=== PATIENT | male | born 1950 | race Caucasian/White ===

== ENCOUNTER 2017-06-01 21:11 | Inpatient (IN) | payer MEDICARE ==
--- NOTE | 2017-06-01 21:48 | RAD ---
CHEST ONE VIEW 06/01/17 HISTORY: Cough. COMPARISON: Chest one view 10/25/15 FINDINGS: Chronic changes of the left lung base are similar. Heart size is mildly prominent. No pneumothorax or large effusions. IMPRESSION: Similar appearance of the chronic changes left lung base. POS: [facility]
[2017-06-01 21:58] LABS: Hematocrit 33.9 % (42.0-52.0); Red Blood Cell (RBC) Count 3.67 mill/uL (4.70-6.10); White Blood Cell (WBC) Count 10.7 thou/uL (4.8-10.8)
[2017-06-01 22:03] LABS: Lactic Acid - Sepsis 1.6 mmol/L (0.5-2.2)
[2017-06-01] MEDS ORDERED: Ondansetron HCl/PF 4 MG/2 ML Vial ONE (22:08)
[2017-06-01 22:09] LABS: ALT (SGPT) 25 U/L (8-55); AST (SGOT) 33 U/L (5-34); Alkaline Phosphatase 146 U/L (40-150); Anion Gap 15 mmol/L (10-20); BUN (Urea Nitrogen) 34 mg/dL (8.4-25.7); Bilirubin, Total 1.8 mg/dL (0.2-1.2); Calc. Creatinine Clearance 0 mL/min (70-130); Calcium 8.4 mg/dL (7.8-10.44); Carbon Dioxide 18 mmol/L (23-31); Chloride 95 mmol/L (98-107); Estimated GFR-MDRD 29; Globulin 2.8 g/dL (2.4-3.5); Lipase 13 U/L (8-78); Magnesium 1.3 mg/dL (1.6-2.6); Protein, Total 5.8 g/dL (5.8-8.1)
[2017-06-01] MEDS ORDERED: Gentamicin Sulfate 80 MG in Premix Bag 1 BAG IVPB SCH (22:15)
--- NOTE | 2017-06-01 22:17 | CT ---
CT BRAIN WITHOUT CONTRAST 06/01/17 HISTORY: Altered mental status. COMPARISON: CT brain 10/25/15. FINDINGS: Left superior cerebellar encephalomalacia is similar as well as encephalomalacia in the left parietal and left frontal lobes. Extensive white matter disease is also present. All these findings are simil ar to the comparison examination. No hydrocephalus. No midline shift or mass effect. Moderate mucosal disease in the maxillary sinuses. IMPRESSION: 1. No significant change. Encephalomalacia of left frontal and parietal and left superior cerebe llum is similar. No acute hemorrhage. 2. Extensive microvascular ischemic changes. POS: [facility]
[2017-06-01 22:21] LABS: #Lymphocytes 0.6 thou/uL (1.20-3.40); #Neutrophils 9.2 thou/uL (1.40-6.50); %Basophils 0.1 % (0.0-1.0); %Eosinophils 0.1 % (0.0-10.0); %Lymphocytes 5.2 % (21.0-51.0); %Monocytes 9.4 % (0.0-10.0); Mean Platelet Volume 7.7 fL (7.4-10.4)
[2017-06-01] MEDS ORDERED: Magnesium Sulfate 2 GM/100 ML BAG ONE (22:56)
--- NOTE | 2017-06-01 22:56 | PDOC.EVN ---
Event Note - Event Note Event Note: [id number] 1. Group b strep bacteremia 2. Hyponatremia 3. NAUSEA AND VOMITING 4. Metabolic acidosis plan: See orders
[2017-06-01] MEDS ORDERED: Enoxaparin Sodium 40 MG/0.4 ML SYRINGE SC SCH (23:00)
[2017-06-01] MEDS ORDERED: Sodium Chloride 0.9% 1,000 ML IV SCH (23:00)
[2017-06-01] MEDS ORDERED: Fentanyl 100 MCG/2 ML VIAL ONE (23:11)
--- NOTE | 2017-06-01 23:30 | RAD ---
PELVIS ONE VIEW 06/01/17 HISTORY: Fall. Fall on right hip. COMPARISON: None. FINDINGS: The exam is limited due to leftward patient rotation. No displaced fracture is appreciated. IMPRESSION: No displaced fracture. If patient is acutely unable to bear weight, MRI recommended. POS: [facility]
[2017-06-01] MEDS ORDERED: Sodium Bicarbonate 75 MEQ in Sodium Chloride 0.45% 1,000 ML IV ONE (23:59)
[2017-06-01] MEDS ORDERED: Linezolid 600 MG in Premix Bag 1 BAG IVPB SCH (23:59)
[2017-06-02 01:41] VITALS: BMI 24.8
[2017-06-02] MEDS ORDERED: Linezolid 600 MG in Premix Bag 1 BAG IVPB SCH ×2 (03:00→15:00)
[2017-06-02] MEDS: Ondansetron HCl/PF 4 MG/2 ML Vial IVP PRN (04:05)
[2017-06-02] MEDS: HYDROcodone/Acetaminophen 5/325 mg Tablet PO PRN ×4 (04:06→19:43)
[2017-06-02 04:37] LABS: ALT (SGPT) 23 U/L (8-55); AST (SGOT) 26 U/L (5-34); Alkaline Phosphatase 113 U/L (40-150); Anion Gap 14 mmol/L (10-20); BUN (Urea Nitrogen) 37 mg/dL (8.4-25.7); Bilirubin, Total 1.4 mg/dL (0.2-1.2); Calc. Creatinine Clearance 39 mL/min (70-130); Calcium 7.9 mg/dL (7.8-10.44); Carbon Dioxide 16 mmol/L (23-31); Chloride 97 mmol/L (98-107); Estimated GFR-MDRD 31; Globulin 2.4 g/dL (2.4-3.5); Protein, Total 4.9 g/dL (5.8-8.1)
[2017-06-02 06:19] LABS: Band 13 % (5-11); Hematocrit 29.7 % (42.0-52.0); Neutrophil 76 % (42-75); Polychromasia SLIGHT = 2-3 cells (100X) (0-2/hpf); Red Blood Cell (RBC) Count 3.21 mill/uL (4.70-6.10); White Blood Cell (WBC) Count 10.3 thou/uL (4.8-10.8)
--- NOTE | 2017-06-02 07:34 | HP ---
DATE OF ADMISSION: 06/01/2017 CHIEF COMPLAINT: Abnormal labs, positive blood cultures. HISTORY OF PRESENT ILLNESS: The patient is 67 years old male with past medical history of hypertension, diabetes mellitus type 2, history of brain abscess and history of bacteremia, now came to the ER because of abnormal blood cultures and nausea and vomiting. The patient said he is having nausea and vomiting since Saturday. Symptoms improved on Saturday, but symptoms persisted again on Saturday, so he went to outside ER. In the outside ER, the patient had CT abdomen and pelvis done and patient was discharged to home. The patient's symptoms got worse today associated with vomiting, so patient came to the ER. Denies any fever, denies any chills. The patient did have blood cultures done in the outside ER yesterday, which showed group B strep bacteremia. The patient denies any cough, denies sputum production. Denies any chest pain, denies any palpitations at this time. PAST MEDICAL HISTORY: As per HPI. PAST SURGICAL HISTORY: Brain surgery, abscess drainage x2. SOCIAL HISTORY: Denies smoking, denies alcohol, denies any drugs. FAMILY HISTORY: Denies any heart problems. MEDICATIONS: Reviewed. ALLERGIES: PENICILLIN. REVIEW OF SYSTEMS: Constitutional: Denies any fever, denies any chills. Eyes : Denies any vision problems. Neck: Denies any neck pain. Cardiovascular system: Denies any chest pain, denies any palpitations. Respiratory system: Denies any cough, denies sputum production. Gastrointestinal: Positive for nausea, vomiting. Genitourinary: Denies dysuria. Integumentary: Denies any rash. All other systems are reviewed and are negative. PHYSICAL EXAMINATION: CONSTITUTIONAL/VITAL SIGNS: At the time of H&P performed, blood pressure 117/60 , pulse ox 93%, heart rate 83. GENERAL APPEARANCE: The patient appears comfortable. HEENT: Pupils equal, round, and reactive to light. Anterior nares patent. Nose normal. Ears normal. Teeth intact. Tongue is moist. NECK: Supple, no JVD. CARDIOVASCULAR: S1, S2 present. Regular rate and rhythm. No murmurs, no rubs , no gallops. RESPIRATORY SYSTEM: No wheezing, no rhonchi. Breath sounds bilaterally. GASTROINTESTINAL: Abdomen, mild tender to palpate. No guarding, no organomegaly, no masses felt. MUSCULOSKELETAL: No edema. INTEGUMENTARY: No obvious rashes seen. PSYCHIATRIC: Mood is appropriate at this time. LABORATORY DATA: At the time of H&P performed, sodium 124, potassium 4.1, chloride 95, CO2 is 18, BUN 34, creatinine 2.29. White count 10.7, hemoglobin 11.7, platelet count is 89. ASSESSMENT AND PLAN: The patient is 67 years old male. 1. Group B Streptococcus bacteremia. Plan to start the patient on IV antibiotics. Plan to consult ID to evaluate the patient. Plan to monitor the patient closely. 2. Nausea, vomiting. P.r.n. antiemetics. Monitor patient closely. CT abdomen was unremarkable. We will monitor the patient closely. 3. Hyponatremia probably due to hypovolemia. Plan to start the patient on IV fluids, obtain BMP in a.m. and BMP q.6h. We will monitor sodium level closely. We will consult Nephrology to evaluate the patient. 4. Metabolic acidosis, mild. Monitor bicarb level. Plan to start the patient on half NS with 75 mEq bicarbonate. 5. History of diabetes mellitus, type 2. Monitor blood sugars. We will continue insulin sliding scale. 6. History of hypertension. Continue home blood pressure meds. The case was discussed in detail with the patient. GIOVANNA
[2017-06-02] MEDS ORDERED: Promethazine HCl 25 MG/ML VIAL IM/IV PRN (07:44)
[2017-06-02] MEDS ORDERED: Dextrose 50% Abboject 50 ML SYRINGE SLOW IVP PRN (08:11)
[2017-06-02] MEDS ORDERED: Dextrose 5% in Water 1,000 ML IV PRN (08:11)
[2017-06-02] MEDS ORDERED: Hyoscyamine Sulfate SL 0.125 mg Tablet SL PRN (08:11)
[2017-06-02] MEDS ORDERED: HumaLOG 300 UNITS/3 ML VIAL SC PRN (08:11)
[2017-06-02] MEDS ORDERED: Mag-Al 1200 mg/1200 mg/30 ML UDCUP PO PRN (08:14)
[2017-06-02] MEDS ORDERED: Diabetic Tussin 200 MG/10 ML UDCUP PO PRN (08:14)
[2017-06-02] MEDS ORDERED: Sodium Chloride 0.65% Nasal 44 ML BOT EA NARE PRN (08:14)
[2017-06-02] MEDS ORDERED: Temazepam 15 MG CAP PO PRN (08:14)
[2017-06-02] MEDS ORDERED: Loratadine 10 MG TAB PO PRN (08:14)
[2017-06-02] MEDS ORDERED: Artificial Tears 18 DROP/0.9 ML EA EYE PRN (08:14)
[2017-06-02] MEDS ORDERED: Loperamide HCl 2 MG CAP PO PRN (08:14)
[2017-06-02] MEDS ORDERED: Milk Of Magnesia 30 ML UDCUP PO PRN (08:14)
[2017-06-02] MEDS ORDERED: Chloraseptic Spray 180 ml Bottle PO PRN (08:14)
[2017-06-02] MEDS ORDERED: hydrALAZINE 20 MG/ML VIAL SLOW IVP PRN (08:14)
[2017-06-02] MEDS ORDERED: Senokot 8.6 MG TAB PO PRN (08:14)
[2017-06-02] MEDS ORDERED: Eucerin (Mineral Oil/Petrolatum,White) 30 gm Jar TOP PRN (08:14)
[2017-06-02] MEDS: Promethazine HCl 25 MG/ML VIAL IM/IV PRN (08:26)
--- NOTE | 2017-06-02 10:04 | PDOC.PN ---
- Subjective Encounter Start Date: 06/02/17 Encounter Start Time: 07:00 -: old records requested/rev Patient seen and examined. No overnight events, pt has nausea and vomiting, weak , has right leg pain - Objective Resuscitation Status: Resuscitation Status FULL:Full Resuscitation MAR Reviewed: Yes Vital Signs & Weight: Vital Signs (12 hours) Temp Pulse Resp BP Pulse Ox 06/02/17 07:12 99.1 F 78 16 149/68 H 90 L 06/02/17 00:50 98.3 F 72 18 135/61 92 L 06/02/17 00:42 98.3 F 72 18 92 L Weight Weight 178 lb Result Diagrams: 06/02/17 03:58 06/02/17 03:58 EKG Reviewed by me: Yes Phys Exam - Physical Examination Constitutional: NAD HEENT: PERRLA, moist MMs, sclera anicteric Neck: no JVD, supple Respiratory: no wheezing, no rales, no rhonchi Cardiovascular: RRR, no significant murmur, no rub Gastrointestinal: soft, non-tender, no distention, positive bowel sounds Musculoskeletal: no edema, pulses present Neurological: non-focal, normal sensation, moves all 4 limbs Psychiatric: normal affect, A&O x 3 Skin: no rash, normal turgor Dx/Plan (1) Fall Code(s): W19.XXXA - UNSPECIFIED FALL, INITIAL ENCOUNTER Status: Acute (2) Acute kidney failure Status: Acute (3) Bacteremia due to Streptococcus Code(s): R78.81 - BACTEREMIA; B95.5 - UNSP STREPTOCOCCUS THE CAUSE OF DISEASES CLASSD ELSWHR Status: Acute (4) Hyponatremia Code(s): E87.1 - HYPO-OSMOLALITY AND HYPONATREMIA Status: Acute (5) Metabolic acidosis Code(s): E87.2 - ACIDOSIS Status: Acute (6) Nausea & vomiting Code(s): R11.2 - NAUSEA WITH VOMITING, UNSPECIFIED Status: Acute (7) Sepsis with acute organ dysfunction Code(s): A41.9 - SEPSIS, UNSPECIFIED ORGANISM; R65.20 - SEVERE SEPSIS WITHOUT SEPTIC SHOCK Status: Acute (8) Thrombocytopenia Code(s): D69.6 - THROMBOCYTOPENIA, UNSPECIFIED Status: Acute (9) DM type 2 (diabetes mellitus, type 2) Status: Chronic (10) Dyslipidemia Code(s): E78.5 - HYPERLIPIDEMIA, UNSPECIFIED Status: Chronic (11) HTN (hypertension) Code(s): I10 - ESSENTIAL (PRIMARY) HYPERTENSION Status: Chronic (12) Hemiparesis due to old cerebrovascular accident Code(s): I69.359 - HEMIPLGA FOLLOWING CEREBRAL INFARCTION AFFECTING UNSP SIDE Status: Chronic - Plan cont current plan of care, continue antibiotics, PT/OT * continue ivf with bicarbonate and once finish start NS * DC zyvox * change levaquin based on renal dose * ID consulted * echo pending * will get strep screen * repeat labs and culture tomorrow * start PT * pain control * medication reviewed as below * symptomatic treatment. * add phenergan Review of Systems - Review of Systems Constitutional: Weakness. negative: Fever, Chills, Sweats, Malaise, Other Eyes: negative: Pain, Vision Change, Conjunctivae Inflammation, Eyelid Inflammation, Redness, Other ENT: negative: Ear Pain, Ear Discharge, Nose Pain, Nose Discharge, Nose Congestion, Mouth Pain, Mouth Swelling, Throat Pain, Throat Swelling, Other Respiratory: negative: Cough, Dry, Shortness of Breath, Hemoptysis, SOB with Excertion, Pleuritic Pain, Sputum, Wheezing Cardiovascular: negative: Chest Pain, Palpitations, Orthopnea, Paroxysmal Noc. Dyspnea, Edema, Light Headedness, Other Gastrointestinal: Nausea, Vomiting Genitourinary: negative: Dysuria, Frequency, Incontinence, Hematuria, Retention , Other Musculoskeletal: Leg Pain. negative: Neck Pain, Shoulder Pain, Arm Pain, Back Pain, Hand Pain, Foot Pain, Other Skin: negative: Rash, Lesions, Jean Paul, Bruising, Other - Medications/Allergies Allergies/Adverse Reactions: Allergies Allergy/AdvReac Type Severity Reaction Status Date / Time Penicillins Allergy Hives Verified 06/23/14 11:19 Medications: Current Medications Acetaminophen (Tylenol) 650 mg PO Q4H PRN PRN Reason: Headache/Fever or Pain Hydrocodone Bitart/Acetaminophen ([place] 5/325) 1 tab PO Q4H PRN PRN Reason: Moderate Pain (4-6) Last Admin: 06/02/17 04:06 Dose: 1 tab Al Hydroxide/Mg Hydroxide (Maalox) 15 ml PO Q4H PRN PRN Reason: Heartburn or Indigestion Artificial Tears (Tears Naturale) 0 drop EA EYE PRN PRN PRN Reason: Dry Eyes Atorvastatin Calcium (Lipitor) 10 mg PO HS [facility]EL Dextrose/Water (Dextrose 50%) 25 gm SLOW IVP PRN PRN PRN Reason: Hypoglycemia Famotidine (Pepcid) 20 mg SLOW IVP Q24HR MICHAEL Glucagon (Glucagon) 1 mg IM PRN PRN PRN Reason: Hypoglycemia Guaifenesin (Robitussin Sf) 200 mg PO Q4H PRN PRN Reason: Cough Hydralazine HCl (Apresoline) 10 mg SLOW IVP Q4H PRN PRN Reason: Systolic BP > 180 Hyoscyamine Sulfate (Levsin Sl) 0.125 mg SL Q4H PRN PRN Reason: GI Cramping Sodium Bicarbonate 75 meq/ (Sodium Chloride) 1,075 mls @ 75 mls/hr IV NOW ONE Stop: 06/02/17 14:18 Last Admin: 06/02/17 02:11 Dose: 1,075 mls Levofloxacin 750 mg/ Device 150 mls @ 100 mls/hr IVPB Q2DAYS MICHAEL Dextrose/Water (D5w) 1,000 mls @ 0 mls/hr IV .Q0M PRN; As Directed PRN Reason: Hypoglycemia Sodium Chloride (Normal Saline 0.9%) 1,000 mls @ 125 mls/hr IV .Q8H MICHAEL Insulin Human Lispro (Humalog) 0 units SC .MODERATE SLIDING SC PRN PRN Reason: Moderate Correctional Scale Insulin Human Lispro (Humalog) 0 units SC .BEDTIME SLIDING SC PRN PRN Reason: Bedtime Correctional Scale Loperamide HCl (Imodium) 2 mg PO PRN PRN PRN Reason: Diarrhea/Loose Stools Loratadine (Claritin) 10 mg PO DAILYPRN PRN PRN Reason: Sinus Symptoms Magnesium Hydroxide (Milk Of Magnesium) 30 ml PO DAILYPRN PRN PRN Reason: Constipation Mineral Oil/White Petrolatum (Eucerin Cream) 0 gm TOP BIDPRN PRN PRN Reason: Dry Skin Ondansetron HCl (Zofran) 4 mg IVP Q6H PRN PRN Reason: Nausea/Vomiting Last Admin: 06/02/17 04:05 Dose: 4 mg Ondansetron HCl (Zofran Odt) 4 mg PO Q6H PRN PRN Reason: Nausea/Vomiting Phenol (Chloraseptic [place] 180 Ml Bot) 0 ml PO PRN PRN PRN Reason: Sore Throat Promethazine HCl (Phenergan) 12.5 mg IM/IV Q6H PRN PRN Reason: Nausea/Vomiting Last Admin: 06/02/17 08:26 Dose: 12.5 mg Senna (Senokot) 2 tab PO HSPRN PRN PRN Reason: Constipation Sodium Chloride (Flush - Normal Saline) 10 ml IVF Q12HR MICHAEL Sodium Chloride (Flush - Normal Saline) 10 ml IVF PRN PRN PRN Reason: Saline Flush Sodium Chloride ([place] Nasal [place] 0.65%) 0 ml EA NARE QIDPRN PRN PRN Reason: Nasal Congestion Temazepam (Restoril) 15 mg PO HSPRN PRN PRN Reason: Insomnia
[2017-06-02 11:41] LABS: Bilirubin Small (Negative); Blood, Urine Trace (Negative); Glucose, Urine (Dipstick) Negative (Negative); Ketone, Urine Trace mg/dL (Negative); Nitrite Negative (Negative); Protein, Urine (Dipstick) 100 mg/dL (Neg-Trace)
[2017-06-02 11:43] LABS: Bacteria/HPF None Seen HPF (None Seen); Hyaline Casts/LPF 0-3 HYALINE CAST LPF (0-3 Hyaline); Squamous Epithelial 0-3 HPF (0-3); WBC/HPF 0-3 HPF (0-3)
--- NOTE | 2017-06-02 12:43 | ULT ---
BILATERAL RENAL ULTRASOUND: Date: 06/02/17 HISTORY: Acute renal insufficiency. FINDINGS: Real-time imaging of the right and left kidneys were performed. This shows normal sized kidneys. Righ t kidney measures 12.0 cm and left kidney measures 11.1 cm in size. There are bilateral renal cysts p resent. The largest on the right is 2.5 cm in the upper pole region and on the left is 4.3 cm in the lower pole region. The bladder has a Reid catheter in place. No signs of obstruction of either kidne y. IMPRESSION: Bilateral renal cysts. No evidence of obstruction. POS: [facility]
[2017-06-02] MEDS: Famotidine/PF 20 mg/2ml Vial SLOW IVP SCH (14:58)
[2017-06-02] MEDS ORDERED: cefTRIAXone\\ROCEPHIN 1 GM in Sodium Chloride 0.9% 100 ML IVPB SCH (15:45)
--- NOTE | 2017-06-02 16:34 | CON ---
DATE OF CONSULTATION: 06/02/2017 REASON FOR CONSULTATION: Bacteremia. 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 He went to the emergency room and a CT abdomen and pelvis was done . The CT findings indicated no bowel obstruction, some perinephric stranding which was bilateral and worse than previously and a nonobstructing left renal calculus noted. Because of persistence of vom iting, he was admitted. The initial findings included BP 117/60 and temperature 98.3. Overall, exam showed mild tenderness in the abdominal area. Patient was given IV antimicrobial therapy with levof loxacin after one dose of ceftriaxone. Currently, he is feeling much better. He denies headaches, v isual symptoms, sore throat, odynophagia, dysphagia. Nausea and vomiting has resolved. No abdominal pain. Voiding without difficulty. He had a little bit of back pain earlier, but that has resolved. Apparently, he fell down and hit his right hip area associated with this acute illness. No appendi cular structure symptoms. No neurological symptoms. 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 SOCIAL HISTORY: Never a smoker. ALLERGIES: History of allergy to PENICILLIN when he was 11 years old and he does not remember exactly what it was, but some form of skin rash. MEDICATIONS: Currently include Tylenol, [place], Maalox, Lipitor, glucagon, Levsin, insulin, and antim icrobials as mentioned above. PHYSICAL EXAMINATION: VITAL SIGNS: T-max 99.1, blood pressure 150/71, pulse 77, respirations 16, O2 sat 92%. GENERAL: Skin exam was normal. Peripheral IV access. He is voiding spontaneously. No lymphadenopa thy. HEENT: Ocular movements are conjugate. Sclerae are white. Pupils are equal. Oral cavity with few numerous missing teeth with a few remaining ones with severe decay and gum disease and gum resorption . NECK: Supple, no jugular venous distention. LUNGS: With symmetric clear breath sounds. HEART: S1 and S2, regular rate. No S3, S4. ABDOMEN: Soft, no tenderness. : No genital abnormalities. MUSCULOSKELETAL: Moves all extremities equally. Mild tenderness in the right hip region. Plantar r esponses are flexure. Cognitive function appears to be intact. LABORATORY DATA: He had white cell count 10.7 and 10.3, hemoglobin 10.6, MCV 92, platelets 86,000 wi th 76% neutrophils. Chemistry with creatinine 2.29 and 2.14. Sodium 123, carbon dioxide 16, bilirub in 1.8 and 1.4. Liver profile normal. Albumin 2.5. Lipase 30. Urinalysis with 0-3 wbc's. Microbi ology with 2 sets of blood cultures with group B Streptococcus from 05/31/2017. Urine culture, no gr owth from 05/31/2017. ASSESSMENT: 1. Diabetes type 2. 2. Prior brain abscesses many years ago. 3. Poor dentition. 4. Diabetes type 2. 5. Skin changes in the feet with onychomycosis. Some areas of periungual inflammatory change and ar eas of skin breakdown in the distal feet. 6. Abnormalities on CT scan with perinephric stranding. 7. Group B strep bacteremia. DISCUSSION: Differential diagnoses includes pyelonephritis with group B strep associated with bacter emia versus bacteremia secondary to penetration of skin organisms through the breeches in the skin no colton in the feet area. No other abnormalities noted in the clinical evaluation that might indicate an alternate source. Transition to Rocephin since the allergy history is not significant for beta lact am cross reactivity. Eventually transition to oral Keflex for a total of 2 weeks. Follow up resolut ion of the kidney stranding changes. Patient will need a Podiatry care and proper foot care as well.
[2017-06-02] MEDS: Sodium Chloride 0.9% 1,000 ML IV SCH ×3 (17:13→22:41)
[2017-06-02] MEDS: HumaLOG 300 UNITS/3 ML VIAL SC PRN (17:51)
[2017-06-02] MEDS: Atorvastatin Calcium 10 MG TAB PO SCH (19:43)
[2017-06-02] MEDS: cefTRIAXone\\ROCEPHIN 1 GM, Syringe 0.4 ML in Sterile Water 9.6 ML SLOW IVP SCH (21:53)
[2017-06-03] MEDS: HYDROcodone/Acetaminophen 5/325 mg Tablet PO PRN (03:55)
[2017-06-03] MEDS: Ondansetron HCl/PF 4 MG/2 ML Vial IVP PRN (04:46)
[2017-06-03 05:12] LABS: ALT (SGPT) 20 U/L (8-55); AST (SGOT) 22 U/L (5-34); Alkaline Phosphatase 126 U/L (40-150); Anion Gap 13 mmol/L (10-20); BUN (Urea Nitrogen) 33 mg/dL (8.4-25.7); Bilirubin, Total 0.7 mg/dL (0.2-1.2); Calc. Creatinine Clearance 47 mL/min (70-130); Calcium 8.3 mg/dL (7.8-10.44); Carbon Dioxide 17 mmol/L (23-31); Chloride 99 mmol/L (98-107); Estimated GFR-MDRD 38; Globulin 2.7 g/dL (2.4-3.5); Protein, Total 5.2 g/dL (5.8-8.1)
[2017-06-03 05:14] LABS: Band 25 % (5-11); Hematocrit 33.2 % (42.0-52.0); Mean Platelet Volume 8.5 fL (7.4-10.4); Neutrophil 64 % (42-75); Red Blood Cell (RBC) Count 3.53 mill/uL (4.70-6.10); White Blood Cell (WBC) Count 10.6 thou/uL (4.8-10.8)
[2017-06-03] MEDS: Promethazine HCl 25 MG/ML VIAL IM/IV PRN (05:20)
[2017-06-03] MEDS: Sodium Chloride 0.9% 1,000 ML IV SCH ×3 (07:22→18:05)
[2017-06-03] MEDS ORDERED: Morphine PF 1 MG/ML SYR IV PRN (07:27)
[2017-06-03] MEDS ORDERED: Famotidine/PF 20 mg/2ml Vial SLOW IVP SCH (09:00)
[2017-06-03] MEDS: Famotidine/PF 20 mg/2ml Vial SLOW IVP SCH (09:09)
--- NOTE | 2017-06-03 09:56 | PDOC.PN ---
- Subjective Encounter Start Date: 06/03/17 Encounter Start Time: 07:30 Patient seen and examined. still has pain in right hip. No overnight events - Objective Resuscitation Status: Resuscitation Status FULL:Full Resuscitation MAR Reviewed: Yes Vital Signs & Weight: Vital Signs (12 hours) Temp Pulse Resp BP Pulse Ox 06/03/17 08:00 99.4 F 74 20 92 L 06/03/17 07:25 99.4 F 74 20 131/63 92 L 06/03/17 02:45 98.1 F 71 24 H 155/71 H 92 L Weight Weight 178 lb I&O: 06/02/17 06/03/17 06/04/17 06:59 06:59 06:59 Intake Total 2832 1237 Output Total 2100 475 Balance 732 762 Result Diagrams: 06/03/17 04:06 06/03/17 04:01 Additional Labs: Accuchecks 06/03/17 06/02/17 06/02/17 06:00 20:59 16:31 POC Glucose 251 H 238 H 273 H EKG Reviewed by me: Yes (nsr) Phys Exam - Physical Examination Constitutional: NAD HEENT: PERRLA, moist MMs, sclera anicteric Neck: no JVD, supple Respiratory: no wheezing, no rales, no rhonchi Cardiovascular: RRR, no significant murmur, no rub Gastrointestinal: soft, non-tender, no distention, positive bowel sounds Musculoskeletal: no edema, pulses present Neurological: non-focal, normal sensation Lymphatic: no nodes Psychiatric: normal affect, A&O x 3 Skin: no rash, normal turgor Dx/Plan (1) Fall Code(s): W19.XXXA - UNSPECIFIED FALL, INITIAL ENCOUNTER Status: Acute (2) Acute kidney failure Status: Acute (3) Bacteremia due to Streptococcus Code(s): R78.81 - BACTEREMIA; B95.5 - UNSP STREPTOCOCCUS THE CAUSE OF DISEASES CLASSD ELSWHR Status: Acute (4) Hyponatremia Code(s): E87.1 - HYPO-OSMOLALITY AND HYPONATREMIA Status: Acute (5) Metabolic acidosis Code(s): E87.2 - ACIDOSIS Status: Acute (6) Nausea & vomiting Code(s): R11.2 - NAUSEA WITH VOMITING, UNSPECIFIED Status: Acute (7) Sepsis with acute organ dysfunction Code(s): A41.9 - SEPSIS, UNSPECIFIED ORGANISM; R65.20 - SEVERE SEPSIS WITHOUT SEPTIC SHOCK Status: Acute (8) Thrombocytopenia Code(s): D69.6 - THROMBOCYTOPENIA, UNSPECIFIED Status: Acute (9) DM type 2 (diabetes mellitus, type 2) Status: Chronic (10) Dyslipidemia Code(s): E78.5 - HYPERLIPIDEMIA, UNSPECIFIED Status: Chronic (11) HTN (hypertension) Code(s): I10 - ESSENTIAL (PRIMARY) HYPERTENSION Status: Chronic (12) Hemiparesis due to old cerebrovascular accident Code(s): I69.359 - HEMIPLGA FOLLOWING CEREBRAL INFARCTION AFFECTING UNSP SIDE Status: Chronic - Plan cont current plan of care, continue antibiotics, PT/OT * ID recommendation noted * continue Rocephin * follow repeat blood culture * will add morphin for pain control * will get CT pelvis for his persistent right hip pain * continue PT * DC tele and transfer to medical * medication reviewed as below * symptomatic treatment. Review of Systems - Review of Systems Constitutional: negative: Fever, Chills, Sweats, Weakness, Malaise, Other ENT: negative: Ear Pain, Ear Discharge, Nose Pain, Nose Discharge, Nose Congestion, Mouth Pain, Mouth Swelling, Throat Pain, Throat Swelling, Other Respiratory: negative: Cough, Dry, Shortness of Breath, Hemoptysis, SOB with Excertion, Pleuritic Pain, Sputum, Wheezing Cardiovascular: negative: Chest Pain, Palpitations, Orthopnea, Paroxysmal Noc. Dyspnea, Edema, Light Headedness, Other Gastrointestinal: Nausea. negative: Vomiting, Abdominal Pain, Diarrhea, Constipation, Melena, Hematochezia, Other Genitourinary: negative: Dysuria, Frequency, Incontinence, Hematuria, Retention , Other Musculoskeletal: Leg Pain. negative: Neck Pain, Shoulder Pain, Arm Pain, Back Pain, Hand Pain, Foot Pain, Other Skin: negative: Rash, Lesions, Jean Paul, Bruising, Other Neurological: negative: Weakness, Numbness, Incoordination, Change in Speech, Confusion, Seizures, Other - Medications/Allergies Allergies/Adverse Reactions: Allergies Allergy/AdvReac Type Severity Reaction Status Date / Time Penicillins Allergy Hives Verified 06/23/14 11:19 Medications: Current Medications Acetaminophen (Tylenol) 650 mg PO Q4H PRN PRN Reason: Headache/Fever or Pain Hydrocodone Bitart/Acetaminophen ([place] 5/325) 1 tab PO Q4H PRN PRN Reason: Moderate Pain (4-6) Last Admin: 06/03/17 03:55 Dose: 1 tab Al Hydroxide/Mg Hydroxide (Maalox) 15 ml PO Q4H PRN PRN Reason: Heartburn or Indigestion Artificial Tears (Tears Naturale) 0 drop EA EYE PRN PRN PRN Reason: Dry Eyes Atorvastatin Calcium (Lipitor) 10 mg PO HS [facility] Last Admin: 06/02/17 19:43 Dose: 10 mg Dextrose/Water (Dextrose 50%) 25 gm SLOW IVP PRN PRN PRN Reason: Hypoglycemia Famotidine (Pepcid) 20 mg SLOW IVP 0900 [facility] Last Admin: 06/03/17 09:01 Dose: 20 mg Glucagon (Glucagon) 1 mg IM PRN PRN PRN Reason: Hypoglycemia Guaifenesin (Robitussin Sf) 200 mg PO Q4H PRN PRN Reason: Cough Hydralazine HCl (Apresoline) 10 mg SLOW IVP Q4H PRN PRN Reason: Systolic BP > 180 Hyoscyamine Sulfate (Levsin Sl) 0.125 mg SL Q4H PRN PRN Reason: GI Cramping Dextrose/Water (D5w) 1,000 mls @ 0 mls/hr IV .Q0M PRN; As Directed PRN Reason: Hypoglycemia Sodium Chloride (Normal Saline 0.9%) 1,000 mls @ 125 mls/hr IV .Q8H [facility] Last Admin: 06/03/17 07:22 Dose: 1,000 mls Ceftriaxone Sodium 1 gm/ (Syringe 0.4 ml/ Sterile Water) 10 mls @ 120 mls/hr SLOW IVP 2200 [facility] Last Admin: 06/02/17 21:53 Dose: 10 mls Insulin Human Lispro (Humalog) 0 units SC .MODERATE SLIDING SC PRN PRN Reason: Moderate Correctional Scale Last Admin: 06/02/17 17:51 Dose: 6 unit/kg Insulin Human Lispro (Humalog) 0 units SC .BEDTIME SLIDING SC PRN PRN Reason: Bedtime Correctional Scale Loperamide HCl (Imodium) 2 mg PO PRN PRN PRN Reason: Diarrhea/Loose Stools Loratadine (Claritin) 10 mg PO DAILYPRN PRN PRN Reason: Sinus Symptoms Magnesium Hydroxide (Milk Of Magnesium) 30 ml PO DAILYPRN PRN PRN Reason: Constipation Mineral Oil/White Petrolatum (Eucerin Cream) 0 gm TOP BIDPRN PRN PRN Reason: Dry Skin Morphine Sulfate (Duramorph) 2 mg IV Q4H PRN PRN Reason: Pain Last Admin: 06/03/17 07:34 Dose: 2 mg Ondansetron HCl (Zofran) 4 mg IVP Q6H PRN PRN Reason: Nausea/Vomiting Last Admin: 06/03/17 04:46 Dose: 4 mg Ondansetron HCl (Zofran Odt) 4 mg PO Q6H PRN PRN Reason: Nausea/Vomiting Phenol (Chloraseptic [place] 180 Ml Bot) 0 ml PO PRN PRN PRN Reason: Sore Throat Promethazine HCl (Phenergan) 12.5 mg IM/IV Q6H PRN PRN Reason: Nausea/Vomiting Last Admin: 06/03/17 05:20 Dose: 12.5 mg Senna (Senokot) 2 tab PO HSPRN PRN PRN Reason: Constipation Sodium Chloride (Flush - Normal Saline) 10 ml IVF Q12HR MICHAEL Last Admin: 06/03/17 08:53 Dose: Not Given Sodium Chloride (Flush - Normal Saline) 10 ml IVF PRN PRN PRN Reason: Saline Flush Sodium Chloride ([place] Nasal [place] 0.65%) 0 ml EA NARE QIDPRN PRN PRN Reason: Nasal Congestion Temazepam (Restoril) 15 mg PO HSPRN PRN PRN Reason: Insomnia
[2017-06-03] MEDS: HumaLOG 300 UNITS/3 ML VIAL SC PRN (11:55)
[2017-06-03] MEDS ORDERED: glyBURIDE 2.5 MG TAB PO SCH (12:00)
[2017-06-03] MEDS ORDERED: Morphine 4 MG/ML VIAL IV PRN (15:26)
[2017-06-03] MEDS: Acetaminophen 325 MG TAB PO PRN (18:01)
[2017-06-03 19:32] LABS: Hematocrit 33.1 % (42.0-52.0); Mean Platelet Volume 8.1 fL (7.4-10.4); Red Blood Cell (RBC) Count 3.54 mill/uL (4.70-6.10); White Blood Cell (WBC) Count 11.5 thou/uL (4.8-10.8)
--- NOTE | 2017-06-03 19:47 | PDOC.EVN ---
Event Note - Event Note Event Note: Patient fell out of chair earlier this evening. Only pain is preexisting pain in right hip. Patient became confused and hypoxic earlier when got morphine to try and help him lie still for the CT scan of hip. Vitals have stabilized now and he is comfortable lying in bed, starting to clear some. Heart/lung/abd exam normal. Hip tender but without deformity. Will try to at least get some plain films of the hip due to the fall. Patient is likely confused due to combination of bacteremia, sepsis, fever, and then the Morphine on top of it. Will continue current treatment.
[2017-06-03 19:51] LABS: Band 23 % (5-11); Neutrophil 68 % (42-75); Nucleated RBC 1 % (0); Ovalocytes SLIGHT = 2-5 cells (100X) (0-1/hpf); Polychromasia SLIGHT = 2-3 cells (100X) (0-2/hpf); Reactive Lymphocytes 1 % (0-10); Schistocytes SLIGHT = 2-5 cells (100X) (0-1/hpf)
[2017-06-03] MEDS: Atorvastatin Calcium 10 MG TAB PO SCH (20:06)
[2017-06-03] MEDS: glyBURIDE 2.5 MG TAB PO SCH (20:07)
--- NOTE | 2017-06-03 20:31 | RAD ---
PORTABLE CHEST: History: Edema. Comparison: 10-27-15 FINDINGS: The lungs are clear. No infiltrate. No evidence of vascular congestion or pulmonary edema. Heart is m ildly enlarged. IMPRESSION: No evidence of acute lung process. POS: [facility]
[2017-06-03] MEDS ORDERED: Furosemide 20 MG/2 ML VIAL SLOW IVP SCH (20:45)
--- NOTE | 2017-06-03 20:57 | RAD ---
RIGHT HIP TWO PORTABLE VIEWS: History: Fall with injury to right hip. FINDINGS: There is evidence of a subcapital fracture. There are moderate degenerative changes at the hip. IMPRESSION: Evidence of subcapital fracture right hip. POS: [facility]
[2017-06-03] MEDS: cefTRIAXone\\ROCEPHIN 1 GM, Syringe 0.4 ML in Sterile Water 9.6 ML SLOW IVP SCH (21:29)
[2017-06-04] MEDS: Morphine 4 MG/ML VIAL SLOW IVP PRN ×2 (03:16→08:34)
[2017-06-04 05:01] LABS: Anion Gap 10 mmol/L (10-20); BUN (Urea Nitrogen) 38 mg/dL (8.4-25.7); Calc. Creatinine Clearance 42 mL/min (70-130); Calcium 8.1 mg/dL (7.8-10.44); Carbon Dioxide 20 mmol/L (23-31); Chloride 101 mmol/L (98-107); Estimated GFR-MDRD 34
[2017-06-04 05:42] LABS: Band 7 % (5-11); Hematocrit 30.6 % (42.0-52.0); Mean Platelet Volume 8.7 fL (7.4-10.4); Metamyelocyte 1 % (0-0); Neutrophil 74 % (42-75); Red Blood Cell (RBC) Count 3.28 mill/uL (4.70-6.10); White Blood Cell (WBC) Count 8.9 thou/uL (4.8-10.8)
[2017-06-04] MEDS: HumaLOG 300 UNITS/3 ML VIAL SC PRN (06:15)
[2017-06-04] MEDS: glyBURIDE 2.5 MG TAB PO SCH ×2 (08:44→23:55)
--- NOTE | 2017-06-04 09:37 | CON ---
DATE OF CONSULTATION: 06/04/2017 HISTORY OF PRESENT ILLNESS: We were asked by [facility] to see patient for right hip pain. Carmelita noguera has had multiple surgeries. He fell at [facility] a few days ago and then yesterday, he received karrie e morphine for his hip pain and fell out of the chair and was found with x-rays of the right hip afte r the fall, but he does have a right femoral neck fracture, nondisplaced. He is in quite a bit of pa in, but morphine is helping this. He denies any numbness and tingling down into the extremities, jus t hip pain. PAST MEDICAL HISTORY: He has had hypertension, diabetes, brain abscess, history of bacteremia, which he also has now and Dr. Phillips has seen patient. PAST SURGICAL HISTORY: Brain surgery, abscess drainage x2. SOCIAL HISTORY: Resides with his who is at the bedside. No alcohol, nicotine, or illicit drug use. FAMILY HISTORY: Noncontributory. ALLERGIES: PENICILLIN. CURRENT HOME MEDICATIONS: Losartan, metformin, Zofran, atorvastatin, hyoscyamine. REVIEW OF SYSTEMS: Patient currently is in a good deal of pain with his right hip. Otherwise, denie s any shortness of breath, chest pain. He does have multiple other medical issues as listed above, b ar currently has no issues with it. ASSESSMENT: 1. Right hip fracture, nondisplaced 2. Multiple medical issues including group B Streptococcus bacteremia. PLAN: I explained the patient for right ORIF hip with percutaneous screw placement. I explained the procedure to the patient and he is amenable to go forthwith surgery. He and his discussed it, and they were just like to get him out of pain. We will plan to do that this afternoon. We discusse d risks and benefits of surgeries and they both given verbal authorization to proceed forth with surg liana, as for his bacteremia and his other health issues also be treated by Dr. Phillips in [facility]. We will keep him n.p.o., he is already on Rocephin. We may add some clindamycin prior to surgery . We will discuss this with Dr. Phillips to see if there needs to be any coverage. This is ELVIA RobertsonC dictating for Dr. Everette Johnston.
--- NOTE | 2017-06-04 11:42 | PRG ---
DATE OF SERVICE: 06/04/2017 SUBJECTIVE: The patient was seen and examined at bedside. His is present in the room during my visit. He complains about quite severe pain in his right hip area and the back. He is getting read y for surgery on his right hip. OBJECTIVE: VITAL SIGNS: Blood pressure is 149/69, pulse is 68, temperature is 100.1. Maximal temperature is 10 2.1. The respiratory rate is 22, O2 saturation is 97. HEENT: Eyes; PERRLA. Pupils are responding to light properly. Sclerae nonicteric. Conjunctivae pi nkish. Oral mucosa is moist. NECK: Supple, no lymphadenopathy. Thyroid is not palpable. No JVD. LUNGS: Clear. HEART: S1, S2 normal, no S3, no S4, no murmur. ABDOMEN: Soft and nontender. Bowel sounds are present, no organomegaly. EXTREMITIES: Right hip area is tender to touch and palpation, no deformities. NEUROLOGIC: He appears alert and oriented x3. There is not any motor deficits, only secondary to am ount of pain he has in his right hip. He is not able to move his right lower extremity much. SKIN: No rash or erythema. LABORATORY: Showed white count of 8.9, hemoglobin 10.6, hematocrit 30.6, platelet count is 113. So dium is 128, potassium 3.4, chloride 101, CO2 20, BUN 38, creatinine 2.01. The glucose is trending f rom 242 to 304. BNP was 334.9. MICROBIOLOGY: Blood cultures done yesterday; preliminary report, he has no growth to-date x2. IMPRESSION: 1. Right hip fracture, status post fall yesterday. The patient is seen by orthopedic surgeon who is recommending open reduction and internal fixation on the right hip to be done this morning and he wi ll be taken to the operating room soon. 2. Streptococcal bacteremia with nausea and vomiting of unclear source. Urine seems not to be a artis rce. ID compensation consultant, Dr. Phillips suggests it might be skin and changes of the inguinal inflammatory fea tures and areas of skin breakdown in the distal feet. 3. Diabetes mellitus, not controlled. Would try to step up his coverage. 4. Prior brain abscesses more than 15 years ago. 5. Abnormalities on CT scan with perinephric stranding. 6. Hyponatremia and hypochloremia. Unclear etiology, most likely related to his vomiting prior to t his hospitalization. 7. Metabolic acidosis secondary to acute kidney injury. There is some improvement of creatinine wit h IV fluids. 8. Thrombocytopenia. The big question is whether he has some liver cirrhosis. PLAN: Continue his Rocephin. He was started on clindamycin by the orthopedic surgeon prior to surge ry. We are going to step up on his diabetic coverage to aggressive sliding scale and start him on a long acting insulin, Levemir 20 units every 24 hours. We are continuing his lower dose of morphine p .r.n. for the pain control. He will be on n.p.o. until he has surgery and will switch him to clear l iquids after that. We will continue IV fluids and check his CBC and comp tomorrow morning.
[2017-06-04] MEDS ORDERED: Fentanyl 100 MCG/2 ML VIAL ONE ×2 (15:14→18:52)
[2017-06-04] MEDS: Clindamycin/D5W 600 MG in Premix Bag 1 BAG IVPB SCH ×2 (15:31→22:30)
[2017-06-04] MEDS ORDERED: Clindamycin/D5W 600 mg/50 ml Premix Bag ONE (17:50)
[2017-06-04] MEDS ORDERED: Propofol 200 MG/20 ML VIAL ONE (19:11)
[2017-06-04] MEDS ORDERED: Promethazine HCl 25 MG/ML VIAL SLOW IVP PRN (20:09)
[2017-06-04] MEDS ORDERED: Ondansetron HCl/PF 4 MG/2 ML Vial IVP PRN (20:09)
[2017-06-04] MEDS ORDERED: Promethazine HCl 25 MG/ML VIAL IM PRN (20:09)
[2017-06-04] MEDS ORDERED: Insulin Detemir 100 UNITS/ML 15 UNITS in Pre-Filled Syringe 1 EACH SC SCH (21:00)
[2017-06-04] MEDS: cefTRIAXone\\ROCEPHIN 1 GM, Syringe 0.4 ML in Sterile Water 9.6 ML SLOW IVP SCH (21:50)
--- NOTE | 2017-06-04 22:19 | RAD ---
RIGHT HIP: 06/04/17 Three fluoroscopic views from the OR are presented. HISTORY: Hip fracture. Internal fixation. IMPRESSION: Two views demonstrate three screws transfixing the right femoral neck. POS: HECTOR
[2017-06-04] MEDS: Atorvastatin Calcium 10 MG TAB PO SCH (23:55)
[2017-06-05] MEDS: Morphine 4 MG/ML VIAL SLOW IVP PRN ×2 (01:18→21:45)
[2017-06-05] MEDS: HYDROcodone/Acetaminophen 5/325 mg Tablet PO PRN ×3 (03:54→18:59)
[2017-06-05 06:04] LABS: Anion Gap 10 mmol/L (10-20); BUN (Urea Nitrogen) 36 mg/dL (8.4-25.7); Calc. Creatinine Clearance 52 mL/min (70-130); Carbon Dioxide 19 mmol/L (23-31); Chloride 105 mmol/L (98-107); Estimated GFR-MDRD 43
[2017-06-05] MEDS: Clindamycin/D5W 600 MG in Premix Bag 1 BAG IVPB SCH (06:51)
[2017-06-05] MEDS: glyBURIDE 2.5 MG TAB PO SCH ×2 (08:20→21:18)
[2017-06-05] MEDS: Sodium Chloride 0.9% 1,000 ML IV SCH ×2 (11:55→21:22)
--- NOTE | 2017-06-05 12:01 | PRG ---
DATE OF SERVICE: 06/05/2017 SUBJECTIVE: The patient was seen and examined at the bedside. He is complaining about the pain in h is right hip/thigh area, rated at approximately 4 on a scale from 1 to 10. He has good appetite. He ate his breakfast. He did not have any bowel movement today. OBJECTIVE: VITAL SIGNS: Blood pressure 138/65; pulse is 74; temperature is 98.8, maximal temperature in the las t 24 hours is 99.9; pulse oximetry is 92%. HEENT: His head is atraumatic, normocephalic. Eyes are PERRLA. Sclerae nonicteric. Conjunctivae p inkish. Oral mucosa is moist. NECK: Supple, no lymphadenopathy. Thyroid is not palpable. LUNGS: Clear. HEART: S1, S2 normal, no S3, no S4. No murmur. ABDOMEN: Soft, nontender, bowel sounds are present, no organomegaly. EXTREMITIES: Right hip area is dressed. He has an ice pack placed in this area. NEUROLOGIC EXAMINATION: He is alert and oriented x4. There is not any sensorimotor deficit present. Cranial nerves are intact. LABORATORY DATA: Showed sodium of 130, potassium 3.6, chloride 105, CO2 of 19, BUN 36, creatinine 1. 63, glucose is ranging from 175 to 242. Microbiology: No growth on 2 blood cultures from 06/03/2017 . A throat swab from 06/02/2017 was negative. IMPRESSION: 1. Streptococcal bacteremia with negative 2 blood cultures from 2 days ago. The patient is on Rocep hin and clindamycin at this point. The case was discussed with Dr. Phillips, who recommends to continue his Rocephin and stop clindamycin. The source is unclear. 2. Right hip fracture, status post fall and open reduction and internal fixation yesterday. 3. Diabetes mellitus, improved with the use of long-acting insulin. We will go up on the dose to 20 units once a day. 4. History of brain abscesses more than 15 years ago. 5. Abnormalities on CT scan with perinephric stranding. 6. Hyponatremia and hypochloremia, improved with IV hydration. 7. Metabolic acidosis, improved with IV hydration. 8. Thrombocytopenia. We will check his CBC tomorrow. Today, CBC was not done. PLAN: So, stop clindamycin. Continue Rocephin. Increased Levemir dose to 20 units once a day. Con tinue pain management and IV fluids and DVT prophylaxis.
[2017-06-05] MEDS ORDERED: Insulin Detemir 100 UNITS/ML 20 UNITS in Pre-Filled Syringe 1 EACH SC SCH (14:00)
[2017-06-05] MEDS: Atorvastatin Calcium 10 MG TAB PO SCH (21:18)
[2017-06-05] MEDS: cefTRIAXone\\ROCEPHIN 1 GM, Syringe 0.4 ML in Sterile Water 9.6 ML SLOW IVP SCH (21:19)
[2017-06-05] MEDS: Insulin Detemir 100 UNITS/ML 20 UNITS in Pre-Filled Syringe 1 EACH SC SCH (21:19)
[2017-06-06 06:08] LABS: Anion Gap 9 mmol/L (10-20); BUN (Urea Nitrogen) 35 mg/dL (8.4-25.7); Calc. Creatinine Clearance 62 mL/min (70-130); Calcium 7.7 mg/dL (7.8-10.44); Carbon Dioxide 21 mmol/L (23-31); Chloride 105 mmol/L (98-107); Estimated GFR-MDRD 45
[2017-06-06] MEDS: Sodium Chloride 0.9% 1,000 ML IV SCH ×3 (07:57→16:17)
[2017-06-06] MEDS: HYDROcodone/Acetaminophen 5/325 mg Tablet PO PRN (08:56)
[2017-06-06] MEDS: glyBURIDE 2.5 MG TAB PO SCH (08:56)
[2017-06-06] MEDS: Morphine 4 MG/ML VIAL SLOW IVP PRN (09:00)
[2017-06-06] MEDS: Ondansetron ODT 4 MG TAB PO PRN ×2 (09:01→17:53)
--- NOTE | 2017-06-06 11:20 | RAD ---
PORTABLE AP CHEST: Date: 06/06/17 HISTORY: Hypoxia. COMPARISON: 06/03/17. FINDINGS: There is increased parenchymal density at the medial left lung base which could be related to atelect asis or developing pneumonia Right lung is clear. Cardiac silhouette and pulmonary vasculature are wi thin normal limits. There is osteopenia. There is narrowing of the subacromial space on the right sug gestive of a chronic rotator cuff tear. Vascular calcifications seen in the thoracic aorta. IMPRESSION: Increased parenchymal density at the medial left lung base which may be related to developing pneumon ia. However, follow-up PA and lateral chest x-ray is recommended for further evaluation. POS: RAOUL
--- NOTE | 2017-06-06 11:32 | PRG ---
DATE OF SERVICE: 06/06/2017 SUBJECTIVE: The patient is seen and examined at bedside. He is somewhat drowsy, but he is able to a nswer my questions properly. He does not want to eat. He did not like food, he got for breakfast, b ut he did not order any other food. PHYSICAL EXAMINATION: VITAL SIGNS: Blood pressure is 138/69, pulse is 86, temperature is 98.7, maximal temperature is 100. 2, and pulse oximetry is 92% on 3 liters by nasal cannula. HEENT: Head is atraumatic, normocephalic. Pupils are responding to light properly. Sclerae is padmini cteric. Oral mucosa is moist. NECK: Supple. LUNGS: Breath sounds normal. No rales, no wheezing. CARDIOVASCULAR: S1 and S2 normal. No S3, no S4. ABDOMEN: Soft, nontender, nondistended. EXTREMITIES: No clubbing, cyanosis or edema. Right hip/thigh area dressed with an ice pack applied to the area. NEUROLOGIC: He is somewhat drowsy this morning. He just got his pain medications before he is in ph ysical therapy. He is able to move his all 4 extremities, but he is trying to save the right lower e xtremity because of the amount of pain. LABORATORY DATA: His labs showed sodium of 131, potassium 3.5, chloride 105, CO2 of 21, BUN 35, crea tinine 1.55, glycemia ranging from 156 to 240 and calcium 7.7. IMPRESSION: 1. Streptococcal bacteremia with 2 negative blood cultures from 06/03/2017. The patient is on Rocep hin per Dr. Phillips. It would be continued until his discharge and he will be switched to oral Keflex for 2 weeks. 2. Right hip fracture status post fall and open reduction internal fixation. 3. Diabetes mellitus with some response to high dose of Levemir 20 units once a day. We will watch this closely. 4. History of brain abscesses more than 15 years ago. 5. Hyponatremia and hypochloremia improving with IV hydration. 6. Renal insufficiency. I presume that this is secondary to dehydration. His creatinine is improvi ng with IV fluids. 7. Thrombocytopenia. CBC will be checked today. Plan is to obtain the incentive spirometry since he is requiring 3 liters of oxygen per nasal cannula . Postop he is in high risk for pneumonia. We will continue his Rocephin. We will continue his corina g-acting Levemir 20 units once a day along with short-acting insulin sliding scale a.c. and at bedtim e. We will continue hourly incentive spirometry. We will check the chest x-ray and I am going to sw itch him from morphine and opioids to tramadol since he had the previous complication of opiate use a nd will continue his physical therapy.
--- NOTE | 2017-06-06 11:52 | OP ---
DATE OF SURGERY: 06/04/2017 PREOPERATIVE DIAGNOSIS: Right subcapital femoral neck fracture, nondisplaced. POSTOPERATIVE DIAGNOSIS: Right subcapital femoral neck fracture, nondisplaced. SURGICAL PROCEDURE: Cannulated screw fixation of right femoral neck fracture. ANESTHESIA: General. SURGEON: Everette Johnston M.D. IMPLANTS: Synthes 7.3 mm cannulated screws x3. ESTIMATED BLOOD LOSS: Less than 10 mL COMPLICATIONS: None. DRAINS: None. SPECIMEN: None. OUTCOME: Satisfactory. INDICATIONS: The patient is a 67-year-old gentleman status post ground level fall sustaining a nondi splaced femoral neck fracture. After discussion with patient including risks and benefits, we decide d to proceed with cannulated screw stabilization given the complete nondisplaced nature of the fractu re. 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 I have discussed with patient that I do not think this discomf ort is going to go away with the cannulated screw placement and if the patient's hip pain were to per sist, eventually we do more degenerative changes, perhaps a total hip arthroplasty in the future woul d be indicated. DESCRIPTION OF PROCEDURE: After the induction of general anesthesia, the patient was positioned supi ne on the fracture table with the injured extremity held in longitudinal traction. Next, a sterile p rep and drape was performed of the right lateral thigh. Next, a small skin incision was made under C -arm guidance just distal to the tip of the greater trochanter. After skin was sharply incised, diss ection was carried down bluntly to the lateral cortex of the femur. Next, a threaded guidewire was p assed from the lateral cortex of the femur up along the inferior aspect of the femoral neck into the femoral head. This was then followed by two additional screws, one anterosuperior, and 1 posterosupe rior to the first pin. This pin placement was slightly different than a standard hip given the cam d eformity. Once acceptable alignment of the pins were achieved, measurement of the pins were performe d and the appropriate length screw passed over each of the respective pins. Pins were then removed a nd then final AP, lateral C-arm images were obtained that showed anatomic alignment of fracture and a cceptable alignment of the hardware. The wound was then irrigated with bulb syringe and then closed with 0 Vicryl for the fascia, 2-0 Vicryl subcutaneously, and darwin for the skin. A Xeroform gauze and tape dressing was then applied to the thigh and then patient was transferred to recovery room in stable condition. There were no complications. Patient tolerated the procedure well.
[2017-06-06 13:51] LABS: Bilirubin Negative (Negative); Blood, Urine Small (Negative); Glucose, Urine (Dipstick) Negative (Negative); Ketone, Urine Negative (Negative); Nitrite Negative (Negative); Protein, Urine (Dipstick) 30 mg/dL (Neg-Trace)
[2017-06-06 13:52] LABS: Hyaline Casts/LPF 0-3 HYALINE CAST LPF (0-3 Hyaline); Squamous Epithelial 0-3 HPF (0-3)
[2017-06-06 14:05] LABS: Bacteria/HPF 1+ HPF (None Seen); Yeast-All Forms None Seen HPF (None Seen)
[2017-06-06] MEDS: traMADol HCl 50 MG TAB PO PRN ×2 (14:16→21:32)
[2017-06-06 15:06] LABS: #Eosinphils 0.4 thou/uL (0.0-0.7); #Lymphocytes 0.9 thou/uL (1.20-3.40); #Monocytes 1.4 thou/uL (0.11-0.59); #Neutrophils 8.4 thou/uL (1.40-6.50); %Basophils 0.3 % (0.0-1.0); %Eosinophils 3.3 % (0.0-10.0); %Lymphocytes 7.9 % (21.0-51.0); %Monocytes 12.3 % (0.0-10.0); Hematocrit 31.1 % (42.0-52.0); Mean Platelet Volume 6.6 fL (7.4-10.4); White Blood Cell (WBC) Count 11.1 thou/uL (4.8-10.8)
[2017-06-06] MEDS ORDERED: Losartan Potassium 25 MG TAB PO SCH (16:45)
--- NOTE | 2017-06-06 18:42 | ULT ---
BILATERAL LOWER EXTREMITY VENOUS DUPLEX SONOGRAM: History: Bilateral leg pain and edema. Dyspnea. FINDINGS: Each common femoral vein and greater saphenous junction were evaluated along with each femoral, deep femoral, popliteal, and posterior tibial vein. There is good color and spectral doppler flow, edwardo buddy, and augmentation. IMPRESSION: No sonographic evidence of DVT within either lower extremity. POS: RAOUL
[2017-06-06] MEDS: Acetaminophen 325 MG TAB PO PRN (20:34)
[2017-06-06] MEDS: Heparin 5,000 UNITS/ML VIAL SC SCH (20:34)
[2017-06-06] MEDS: Atorvastatin Calcium 10 MG TAB PO SCH (20:34)
[2017-06-06] MEDS: Insulin Detemir 100 UNITS/ML 20 UNITS in Pre-Filled Syringe 1 EACH SC SCH (20:34)
[2017-06-06] MEDS: glyBURIDE 5 MG TAB PO SCH (20:34)
[2017-06-06] MEDS: cefTRIAXone\\ROCEPHIN 1 GM, Syringe 0.4 ML in Sterile Water 9.6 ML SLOW IVP SCH (22:07)
[2017-06-07 05:25] LABS: #Eosinphils 0.4 thou/uL (0.0-0.7); #Lymphocytes 0.9 thou/uL (1.20-3.40); #Monocytes 1.1 thou/uL (0.11-0.59); #Neutrophils 4.9 thou/uL (1.40-6.50); %Basophils 0.5 % (0.0-1.0); %Lymphocytes 12.3 % (21.0-51.0); %Monocytes 14.5 % (0.0-10.0); Hematocrit 30.3 % (42.0-52.0); Mean Platelet Volume 7.2 fL (7.4-10.4); Red Blood Cell (RBC) Count 3.19 mill/uL (4.70-6.10); White Blood Cell (WBC) Count 7.3 thou/uL (4.8-10.8)
[2017-06-07] MEDS: Sodium Chloride 0.9% 1,000 ML IV SCH (05:31)
[2017-06-07 05:44] LABS: Anion Gap 8 mmol/L (10-20); BUN (Urea Nitrogen) 27 mg/dL (8.4-25.7); Calc. Creatinine Clearance 77 mL/min (70-130); Calcium 7.6 mg/dL (7.8-10.44); Carbon Dioxide 21 mmol/L (23-31); Chloride 107 mmol/L (98-107); Estimated GFR-MDRD 59
[2017-06-07] MEDS: Heparin 5,000 UNITS/ML VIAL SC SCH ×2 (09:04→21:23)
[2017-06-07] MEDS: Losartan Potassium 25 MG TAB PO SCH (09:04)
[2017-06-07] MEDS: glyBURIDE 5 MG TAB PO SCH ×2 (09:15→21:23)
[2017-06-07] MEDS: traMADol HCl 50 MG TAB PO PRN (10:01)
[2017-06-07] MEDS ORDERED: Fentanyl 100 MCG/2 ML VIAL SLOW IVP PRN (11:56)
[2017-06-07] MEDS ORDERED: Acetaminophen/Codeine 30-300mg Tablet PO PRN (11:56)
--- NOTE | 2017-06-07 12:01 | PDOC.PN ---
- Subjective Encounter Start Date: 06/07/17 Encounter Start Time: 07:50 -: old records requested/rev still has pain, feels weak, has need of oxygen, sats low - Objective Resuscitation Status: Resuscitation Status FULL:Full Resuscitation MAR Reviewed: Yes Vital Signs & Weight: Vital Signs (12 hours) Temp Pulse Resp BP Pulse Ox Pulse Ox Pulse Ox 06/07/17 08:40 91 L 87 L 06/07/17 08:00 98.2 F 66 20 175/72 H 93 L 06/07/17 07:27 98.6 F 67 16 95 06/07/17 04:00 98.6 F 67 16 151/65 H 95 06/07/17 00:15 99.4 F 75 16 144/67 H 91 L Pulse Ox 06/07/17 08:40 92 L 06/07/17 08:00 06/07/17 07:27 06/07/17 04:00 06/07/17 00:15 Weight Weight 91 lb 4.8 oz I&O: 06/06/17 06/07/17 06/08/17 06:59 06:59 06:59 Intake Total 1175 1690 Output Total 1250 1050 Balance -75 640 Result Diagrams: 06/07/17 04:35 06/07/17 04:35 Additional Labs: Accuchecks 06/07/17 06/06/17 06/06/17 10:53 20:38 11:21 POC Glucose 174 H 104 154 H Radiology Reviewed by me: Yes (chest xray) Phys Exam - Physical Examination Constitutional: NAD HEENT: PERRLA, moist MMs, sclera anicteric Neck: no JVD, supple Respiratory: no wheezing, no rhonchi left base rales Cardiovascular: RRR, no significant murmur, no rub Gastrointestinal: soft, non-tender, no distention, positive bowel sounds Musculoskeletal: no edema, pulses present Neurological: non-focal, normal sensation, moves all 4 limbs Psychiatric: normal affect, A&O x 3 Skin: no rash, normal turgor Dx/Plan (1) Fall Code(s): W19.XXXA - UNSPECIFIED FALL, INITIAL ENCOUNTER Status: Acute (2) Acute kidney failure Status: Resolved (3) Bacteremia due to Streptococcus Code(s): R78.81 - BACTEREMIA; B95.5 - UNSP STREPTOCOCCUS THE CAUSE OF DISEASES CLASSD ELSWHR Status: Acute (4) Hyponatremia Code(s): E87.1 - HYPO-OSMOLALITY AND HYPONATREMIA Status: Acute (5) Metabolic acidosis Code(s): E87.2 - ACIDOSIS Status: Acute (6) Nausea & vomiting Code(s): R11.2 - NAUSEA WITH VOMITING, UNSPECIFIED Status: Resolved (7) Sepsis with acute organ dysfunction Code(s): A41.9 - SEPSIS, UNSPECIFIED ORGANISM; R65.20 - SEVERE SEPSIS WITHOUT SEPTIC SHOCK Status: Acute (8) Thrombocytopenia Code(s): D69.6 - THROMBOCYTOPENIA, UNSPECIFIED Status: Acute (9) DM type 2 (diabetes mellitus, type 2) Status: Chronic (10) Dyslipidemia Code(s): E78.5 - HYPERLIPIDEMIA, UNSPECIFIED Status: Chronic (11) HTN (hypertension) Code(s): I10 - ESSENTIAL (PRIMARY) HYPERTENSION Status: Chronic (12) Hemiparesis due to old cerebrovascular accident Code(s): I69.359 - HEMIPLGA FOLLOWING CEREBRAL INFARCTION AFFECTING UNSP SIDE Status: Chronic (13) Encephalopathy acute Code(s): G93.40 - ENCEPHALOPATHY, UNSPECIFIED Status: Resolved (14) Urinary retention Code(s): R33.9 - RETENTION OF URINE, UNSPECIFIED Status: Acute - Plan cont current plan of care, plan discussed w/ family, castellon catheter, continue antibiotics, PT/OT, social sciences department chair, incentive spirometry, DVT proph w/heparin * continue rocephin for now * add levaquin * pain control * discussed with * will monitor oxygen level * Incentive spirometry advised * medication reviewed as below * symptomatic treatment * will need rehab on discharge. Review of Systems - Review of Systems Constitutional: negative: Fever, Chills, Sweats, Weakness, Malaise, Other Eyes: negative: Pain, Vision Change, Conjunctivae Inflammation, Eyelid Inflammation, Redness, Other ENT: negative: Ear Pain, Ear Discharge, Nose Pain, Nose Discharge, Nose Congestion, Mouth Pain, Mouth Swelling, Throat Pain, Throat Swelling, Other Respiratory: Cough. negative: Dry, Shortness of Breath, Hemoptysis, SOB with Excertion, Pleuritic Pain, Sputum, Wheezing Cardiovascular: negative: Chest Pain, Palpitations, Orthopnea, Paroxysmal Noc. Dyspnea, Edema, Light Headedness, Other Gastrointestinal: negative: Nausea, Vomiting, Abdominal Pain, Diarrhea, Constipation, Melena, Hematochezia, Other Genitourinary: negative: Dysuria, Frequency, Incontinence, Hematuria, Retention , Other Musculoskeletal: Leg Pain. negative: Neck Pain, Shoulder Pain, Arm Pain, Back Pain, Hand Pain, Foot Pain, Other Skin: negative: Rash, Lesions, Jean Paul, Bruising, Other - Medications/Allergies Allergies/Adverse Reactions: Allergies Allergy/AdvReac Type Severity Reaction Status Date / Time Penicillins Allergy Hives Verified 06/23/14 11:19 Medications: Current Medications Acetaminophen (Tylenol) 650 mg PO Q4H PRN PRN Reason: Headache/Fever or Pain Last Admin: 06/06/17 20:34 Dose: 650 mg Acetaminophen/Codeine Phosphate (Tylenol #3) 1 tab PO Q4H PRN PRN Reason: Moderate Pain (4-6) Acetaminophen/Codeine Phosphate (Tylenol #3) 2 tab PO Q4H PRN PRN Reason: Severe Pain (7-10) Al Hydroxide/Mg Hydroxide (Maalox) 15 ml PO Q4H PRN PRN Reason: Heartburn or Indigestion Albuterol/Ipratropium (Duoneb) 3 ml NEB [id number] [facility] Last Admin: 06/07/17 10:39 Dose: Not Given Artificial Tears (Tears Naturale) 0 drop EA EYE PRN PRN PRN Reason: Dry Eyes Atorvastatin Calcium (Lipitor) 10 mg PO HS [facility] Last Admin: 06/06/17 20:34 Dose: 10 mg Dextrose/Water (Dextrose 50%) 25 gm SLOW IVP PRN PRN PRN Reason: Hypoglycemia Fentanyl (Sublimaze) 25 mcg SLOW IVP Q2H PRN PRN Reason: Moderate Pain (4-6) Glucagon (Glucagon) 1 mg IM PRN PRN PRN Reason: Hypoglycemia Glyburide (Diabeta) 5 mg PO BID [facility] Last Admin: 06/07/17 09:15 Dose: 5 mg Guaifenesin (Robitussin Sf) 200 mg PO Q4H PRN PRN Reason: Cough Heparin Sodium (Porcine) (Heparin) 5,000 units SC BID [facility] Last Admin: 06/07/17 09:04 Dose: 5,000 units Hydralazine HCl (Apresoline) 10 mg SLOW IVP Q4H PRN PRN Reason: Systolic BP > 180 Last Admin: 06/06/17 16:17 Dose: 10 mg Hyoscyamine Sulfate (Levsin Sl) 0.125 mg SL Q4H PRN PRN Reason: GI Cramping Dextrose/Water (D5w) 1,000 mls @ 0 mls/hr IV .Q0M PRN; As Directed PRN Reason: Hypoglycemia Ceftriaxone Sodium 1 gm/ (Syringe 0.4 ml/ Sterile Water) 10 mls @ 120 mls/hr SLOW IVP 2200 [facility] Last Admin: 06/06/17 22:07 Dose: 10 mls Insulin Detemir 20 units/ (Miscellaneous Medication) 0.2 mls @ 0 mls/hr SC HS [facility] PRN Reason: Per Protocol Last Admin: 06/06/17 20:34 Dose: 0.2 mls Sodium Chloride (Normal Saline 0.9%) 1,000 mls @ 75 mls/hr IV .[id number] [facility] Last Admin: 06/07/17 05:31 Dose: 1,000 mls Levofloxacin 500 mg/ Device 100 mls @ 100 mls/hr IVPB Q24HR [facility] Last Admin: 06/07/17 09:04 Dose: 100 mls Insulin Human Lispro (Humalog) 0 units SC .MODERATE SLIDING SC PRN PRN Reason: Moderate Correctional Scale Last Admin: 06/04/17 06:15 Dose: 4 unit Insulin Human Lispro (Humalog) 0 units SC .BEDTIME SLIDING SC PRN PRN Reason: Bedtime Correctional Scale Last Admin: 06/03/17 21:37 Dose: 4 unit Loperamide HCl (Imodium) 2 mg PO PRN PRN PRN Reason: Diarrhea/Loose Stools Loratadine (Claritin) 10 mg PO DAILYPRN PRN PRN Reason: Sinus Symptoms Losartan Potassium (Cozaar) 50 mg PO DAILY [facility] Last Admin: 06/07/17 09:04 Dose: 50 mg Magnesium Hydroxide (Milk Of Magnesium) 30 ml PO DAILYPRN PRN PRN Reason: Constipation Mineral Oil/White Petrolatum (Eucerin Cream) 0 gm TOP BIDPRN PRN PRN Reason: Dry Skin Ondansetron HCl (Zofran) 4 mg IVP Q6H PRN PRN Reason: Nausea/Vomiting Last Admin: 06/03/17 04:46 Dose: 4 mg Ondansetron HCl (Zofran Odt) 4 mg PO Q6H PRN PRN Reason: Nausea/Vomiting Last Admin: 06/06/17 17:53 Dose: 4 mg Pantoprazole Sodium (Protonix) 40 mg PO DAILY [facility] Last Admin: 06/07/17 09:04 Dose: 40 mg Phenol (Chloraseptic [place] 180 Ml Bot) 0 ml PO PRN PRN PRN Reason: Sore Throat Promethazine HCl (Phenergan) 12.5 mg IM/IV Q6H PRN PRN Reason: Nausea/Vomiting Last Admin: 06/03/17 05:20 Dose: 12.5 mg Senna (Senokot) 2 tab PO HSPRN PRN PRN Reason: Constipation Sodium Chloride (Flush - Normal Saline) 10 ml IVF Q12HR [facility] Last Admin: 06/07/17 09:05 Dose: Not Given Sodium Chloride (Flush - Normal Saline) 10 ml IVF PRN PRN PRN Reason: Saline Flush Last Admin: 06/04/17 03:15 Dose: 10 ml Sodium Chloride (Desha Nasal [place] 0.65%) 0 ml EA NARE QIDPRN PRN PRN Reason: Nasal Congestion Temazepam (Restoril) 15 mg PO HSPRN PRN PRN Reason: Insomnia Tramadol HCl (Ultram) 100 mg PO Q4H PRN PRN Reason: Moderate Pain (4-6) Last Admin: 06/07/17 10:01 Dose: 100 mg
[2017-06-07] MEDS: Insulin Detemir 100 UNITS/ML 20 UNITS in Pre-Filled Syringe 1 EACH SC SCH (21:23)
[2017-06-07] MEDS: Atorvastatin Calcium 10 MG TAB PO SCH (21:23)
[2017-06-07] MEDS: cefTRIAXone\\ROCEPHIN 1 GM, Syringe 0.4 ML in Sterile Water 9.6 ML SLOW IVP SCH (21:32)
[2017-06-08] MEDS: Sodium Chloride 0.9% 1,000 ML IV SCH (02:44)
[2017-06-08 05:09] LABS: Anion Gap 7 mmol/L (10-20); BUN (Urea Nitrogen) 20 mg/dL (8.4-25.7); Calc. Creatinine Clearance 40 mL/min (70-130); Calcium 7.6 mg/dL (7.8-10.44); Carbon Dioxide 20 mmol/L (23-31); Chloride 107 mmol/L (98-107); Estimated GFR-MDRD 69
[2017-06-08] MEDS: Losartan Potassium 25 MG TAB PO SCH (08:55)
[2017-06-08] MEDS: glyBURIDE 5 MG TAB PO SCH ×2 (08:56→21:08)
[2017-06-08] MEDS: traMADol HCl 50 MG TAB PO PRN ×2 (08:56→14:06)
[2017-06-08] MEDS: Heparin 5,000 UNITS/ML VIAL SC SCH ×2 (08:56→21:09)
[2017-06-08] MEDS: Ondansetron ODT 4 MG TAB PO PRN (10:58)
[2017-06-08] MEDS: Acetaminophen/Codeine 30-300mg Tablet PO PRN ×2 (11:39→21:08)
--- NOTE | 2017-06-08 12:45 | PDOC.PN ---
- Subjective Encounter Start Date: 06/08/17 Encounter Start Time: 11:30 Patient seen and examined. No new complaints. No overnight events - Objective Resuscitation Status: Resuscitation Status FULL:Full Resuscitation MAR Reviewed: Yes Vital Signs & Weight: Vital Signs (12 hours) Temp Pulse Resp BP Pulse Ox 06/08/17 11:35 98.4 F 71 16 177/88 H 94 L 06/08/17 07:43 92 L 06/08/17 07:18 98.2 F 69 16 175/80 H 93 L 06/08/17 04:09 98.5 F 67 16 164/73 H 92 L Weight Weight 91 lb 4.8 oz I&O: 06/07/17 06/08/17 06/09/17 06:59 06:59 06:59 Intake Total 1690 1740 Output Total 1050 1050 Balance 640 690 Result Diagrams: 06/07/17 04:35 06/08/17 04:20 Additional Labs: Accuchecks 06/08/17 06/08/17 06/07/17 10:59 05:32 20:36 POC Glucose 116 H 101 167 H 06/07/17 06/07/17 06/06/17 16:15 05:33 16:27 POC Glucose 182 H 82 114 H Phys Exam - Physical Examination Constitutional: NAD HEENT: PERRLA, moist MMs, sclera anicteric Neck: no JVD, supple Respiratory: no wheezing, no rales, no rhonchi Cardiovascular: RRR, no significant murmur, no rub Gastrointestinal: soft, non-tender, no distention, positive bowel sounds Musculoskeletal: no edema, pulses present Neurological: non-focal, normal sensation Lymphatic: no nodes Psychiatric: normal affect Skin: no rash, normal turgor Dx/Plan (1) Acute kidney failure Status: Resolved (2) Fall Code(s): W19.XXXA - UNSPECIFIED FALL, INITIAL ENCOUNTER Status: Acute (3) Bacteremia due to Streptococcus Code(s): R78.81 - BACTEREMIA; B95.5 - UNSP STREPTOCOCCUS THE CAUSE OF DISEASES CLASSD ELSWHR Status: Resolved (4) Hyponatremia Code(s): E87.1 - HYPO-OSMOLALITY AND HYPONATREMIA Status: Acute (5) Metabolic acidosis Code(s): E87.2 - ACIDOSIS Status: Acute (6) Nausea & vomiting Code(s): R11.2 - NAUSEA WITH VOMITING, UNSPECIFIED Status: Resolved (7) Sepsis with acute organ dysfunction Code(s): A41.9 - SEPSIS, UNSPECIFIED ORGANISM; R65.20 - SEVERE SEPSIS WITHOUT SEPTIC SHOCK Status: Acute (8) Thrombocytopenia Code(s): D69.6 - THROMBOCYTOPENIA, UNSPECIFIED Status: Acute (9) DM type 2 (diabetes mellitus, type 2) Status: Chronic (10) Dyslipidemia Code(s): E78.5 - HYPERLIPIDEMIA, UNSPECIFIED Status: Chronic (11) HTN (hypertension) Code(s): I10 - ESSENTIAL (PRIMARY) HYPERTENSION Status: Chronic (12) Hemiparesis due to old cerebrovascular accident Code(s): I69.359 - HEMIPLGA FOLLOWING CEREBRAL INFARCTION AFFECTING UNSP SIDE Status: Chronic (13) Encephalopathy acute Code(s): G93.40 - ENCEPHALOPATHY, UNSPECIFIED Status: Resolved (14) Urinary retention Code(s): R33.9 - RETENTION OF URINE, UNSPECIFIED Status: Acute (15) Hip fracture Code(s): S72.009A - FRACTURE OF UNSP PART OF NECK OF UNSP FEMUR, INIT Status: Acute Qualifiers: Laterality: right Comment: s/p surgical repair (16) Acute respiratory failure with hypoxia Code(s): J96.01 - ACUTE RESPIRATORY FAILURE WITH HYPOXIA Status: Acute (17) Left lower lobe pneumonia Code(s): J18.1 - LOBAR PNEUMONIA, UNSPECIFIED ORGANISM Status: Acute - Plan cont current plan of care, continue antibiotics, PT/OT, school social worker, incentive spirometry * stable and improving * pain controlled * continue rocephin and levaquin * will need rehab placement * medication reviewed as below * symptomatic treatment. Review of Systems - Review of Systems ENT: negative: Ear Pain, Ear Discharge, Nose Pain, Nose Discharge, Nose Congestion, Mouth Pain, Mouth Swelling, Throat Pain, Throat Swelling, Other Respiratory: negative: Cough, Dry, Shortness of Breath, Hemoptysis, SOB with Excertion, Pleuritic Pain, Sputum, Wheezing Cardiovascular: negative: Chest Pain, Palpitations, Orthopnea, Paroxysmal Noc. Dyspnea, Edema, Light Headedness, Other Gastrointestinal: negative: Nausea, Vomiting, Abdominal Pain, Diarrhea, Constipation, Melena, Hematochezia, Other Genitourinary: negative: Dysuria, Frequency, Incontinence, Hematuria, Retention , Other Musculoskeletal: negative: Neck Pain, Shoulder Pain, Arm Pain, Back Pain, Hand Pain, Leg Pain, Foot Pain, Other Skin: negative: Rash, Lesions, Jean Paul, Bruising, Other - Medications/Allergies Allergies/Adverse Reactions: Allergies Allergy/AdvReac Type Severity Reaction Status Date / Time Penicillins Allergy Hives Verified 06/23/14 11:19 Medications: Current Medications Acetaminophen (Tylenol) 650 mg PO Q4H PRN PRN Reason: Headache/Fever or Pain Last Admin: 06/06/17 20:34 Dose: 650 mg Acetaminophen/Codeine Phosphate (Tylenol #3) 1 tab PO Q4H PRN PRN Reason: Moderate Pain (4-6) Acetaminophen/Codeine Phosphate (Tylenol #3) 2 tab PO Q4H PRN PRN Reason: Severe Pain (7-10) Last Admin: 06/08/17 11:39 Dose: 2 tab Al Hydroxide/Mg Hydroxide (Maalox) 15 ml PO Q4H PRN PRN Reason: Heartburn or Indigestion Albuterol/Ipratropium (Duoneb) 3 ml NEB [id number] [facility] Last Admin: 06/08/17 07:43 Dose: Not Given Artificial Tears (Tears Naturale) 0 drop EA EYE PRN PRN PRN Reason: Dry Eyes Atorvastatin Calcium (Lipitor) 10 mg PO HS [facility] Last Admin: 06/07/17 21:23 Dose: 10 mg Dextrose/Water (Dextrose 50%) 25 gm SLOW IVP PRN PRN PRN Reason: Hypoglycemia Fentanyl (Sublimaze) 25 mcg SLOW IVP Q2H PRN PRN Reason: Moderate Pain (4-6) Last Admin: 06/07/17 12:15 Dose: 25 mcg Glucagon (Glucagon) 1 mg IM PRN PRN PRN Reason: Hypoglycemia Glyburide (Diabeta) 5 mg PO BID [facility] Last Admin: 06/08/17 08:56 Dose: 5 mg Guaifenesin (Robitussin Sf) 200 mg PO Q4H PRN PRN Reason: Cough Heparin Sodium (Porcine) (Heparin) 5,000 units SC BID [facility] Last Admin: 06/08/17 08:56 Dose: 5,000 units Hydralazine HCl (Apresoline) 10 mg SLOW IVP Q4H PRN PRN Reason: Systolic BP > 180 Last Admin: 06/06/17 16:17 Dose: 10 mg Hyoscyamine Sulfate (Levsin Sl) 0.125 mg SL Q4H PRN PRN Reason: GI Cramping Dextrose/Water (D5w) 1,000 mls @ 0 mls/hr IV .Q0M PRN; As Directed PRN Reason: Hypoglycemia Ceftriaxone Sodium 1 gm/ (Syringe 0.4 ml/ Sterile Water) 10 mls @ 120 mls/hr SLOW IVP 2200 MICHAEL Last Admin: 06/07/17 21:32 Dose: 10 mls Insulin Detemir 20 units/ (Miscellaneous Medication) 0.2 mls @ 0 mls/hr SC HS MICHAEL PRN Reason: Per Protocol Last Admin: 06/07/17 21:23 Dose: 0.2 mls Levofloxacin 500 mg/ Device 100 mls @ 100 mls/hr IVPB Q24HR [facility] Last Admin: 06/08/17 08:56 Dose: 100 mls Insulin Human Lispro (Humalog) 0 units SC .MODERATE SLIDING SC PRN PRN Reason: Moderate Correctional Scale Last Admin: 06/04/17 06:15 Dose: 4 unit Insulin Human Lispro (Humalog) 0 units SC .BEDTIME SLIDING SC PRN PRN Reason: Bedtime Correctional Scale Last Admin: 06/03/17 21:37 Dose: 4 unit Loperamide HCl (Imodium) 2 mg PO PRN PRN PRN Reason: Diarrhea/Loose Stools Loratadine (Claritin) 10 mg PO DAILYPRN PRN PRN Reason: Sinus Symptoms Losartan Potassium (Cozaar) 50 mg PO DAILY [facility] Last Admin: 06/08/17 08:55 Dose: 50 mg Magnesium Hydroxide (Milk Of Magnesium) 30 ml PO DAILYPRN PRN PRN Reason: Constipation Mineral Oil/White Petrolatum (Eucerin Cream) 0 gm TOP BIDPRN PRN PRN Reason: Dry Skin Ondansetron HCl (Zofran) 4 mg IVP Q6H PRN PRN Reason: Nausea/Vomiting Last Admin: 06/03/17 04:46 Dose: 4 mg Ondansetron HCl (Zofran Odt) 4 mg PO Q6H PRN PRN Reason: Nausea/Vomiting Last Admin: 06/08/17 10:58 Dose: 4 mg Pantoprazole Sodium (Protonix) 40 mg PO DAILY [facility] Last Admin: 06/08/17 08:56 Dose: 40 mg Phenol (Chloraseptic [place] 180 Ml Bot) 0 ml PO PRN PRN PRN Reason: Sore Throat Promethazine HCl (Phenergan) 12.5 mg IM/IV Q6H PRN PRN Reason: Nausea/Vomiting Last Admin: 06/03/17 05:20 Dose: 12.5 mg Senna (Senokot) 2 tab PO HSPRN PRN PRN Reason: Constipation Sodium Chloride (Flush - Normal Saline) 10 ml IVF Q12HR [facility] Last Admin: 06/08/17 09:10 Dose: Not Given Sodium Chloride (Flush - Normal Saline) 10 ml IVF PRN PRN PRN Reason: Saline Flush Last Admin: 06/04/17 03:15 Dose: 10 ml Sodium Chloride ([place] Nasal [place] 0.65%) 0 ml EA NARE QIDPRN PRN PRN Reason: Nasal Congestion Temazepam (Restoril) 15 mg PO HSPRN PRN PRN Reason: Insomnia Tramadol HCl (Ultram) 100 mg PO Q4H PRN PRN Reason: Moderate Pain (4-6) Last Admin: 06/08/17 08:56 Dose: 100 mg
[2017-06-08] MEDS: Atorvastatin Calcium 10 MG TAB PO SCH (21:08)
[2017-06-08] MEDS: Insulin Detemir 100 UNITS/ML 20 UNITS in Pre-Filled Syringe 1 EACH SC SCH (21:09)
[2017-06-08] MEDS: cefTRIAXone\\ROCEPHIN 1 GM, Syringe 0.4 ML in Sterile Water 9.6 ML SLOW IVP SCH (21:10)
[2017-06-09] MEDS: traMADol HCl 50 MG TAB PO PRN (08:26)
[2017-06-09] MEDS: Losartan Potassium 25 MG TAB PO SCH (08:26)
[2017-06-09] MEDS: Heparin 5,000 UNITS/ML VIAL SC SCH ×2 (08:26→20:28)
[2017-06-09] MEDS: Ondansetron ODT 4 MG TAB PO PRN (08:28)
[2017-06-09] MEDS ORDERED: Furosemide 40 MG/4 ML VIAL SLOW IVP SCH (09:30)
--- NOTE | 2017-06-09 12:27 | PDOC.PN ---
- Subjective Encounter Start Date: 06/09/17 Encounter Start Time: 08:25 pt is weak today, his blood sugar dropping, feels swelling in scrotum - Objective Resuscitation Status: Resuscitation Status FULL:Full Resuscitation MAR Reviewed: Yes Vital Signs & Weight: Vital Signs (12 hours) Temp Pulse Resp BP Pulse Ox 06/09/17 12:00 98.1 F 82 20 173/82 H 94 L 06/09/17 08:00 98.1 F 66 20 157/77 H 92 L 06/09/17 03:51 98.8 F 67 18 155/67 H 93 L 06/09/17 03:05 95 06/09/17 00:46 147/68 H Weight Weight 91 lb 4.8 oz I&O: 06/08/17 06/09/17 06/10/17 06:59 06:59 06:59 Intake Total 1740 630 Output Total 1050 1550 Balance 690 -920 Result Diagrams: 06/07/17 04:35 06/08/17 04:20 Additional Labs: Accuchecks 06/09/17 06/09/17 06/09/17 11:12 06:20 06:06 POC Glucose 174 H 74 64 L 06/08/17 06/08/17 20:42 16:16 POC Glucose 100 64 L Phys Exam - Physical Examination Constitutional: NAD HEENT: PERRLA, moist MMs, sclera anicteric Neck: no JVD, supple Respiratory: no wheezing, no rales, no rhonchi Cardiovascular: RRR, no significant murmur, no rub Gastrointestinal: soft, non-tender, no distention, positive bowel sounds Musculoskeletal: no edema, pulses present scrotal swelling Neurological: non-focal, normal sensation, moves all 4 limbs Psychiatric: normal affect, A&O x 3 Skin: no rash, normal turgor Dx/Plan (1) Acute kidney failure Status: Resolved (2) Fall Code(s): W19.XXXA - UNSPECIFIED FALL, INITIAL ENCOUNTER Status: Acute (3) Bacteremia due to Streptococcus Code(s): R78.81 - BACTEREMIA; B95.5 - UNSP STREPTOCOCCUS THE CAUSE OF DISEASES CLASSD ELSWHR Status: Resolved (4) Hyponatremia Code(s): E87.1 - HYPO-OSMOLALITY AND HYPONATREMIA Status: Acute (5) Metabolic acidosis Code(s): E87.2 - ACIDOSIS Status: Acute (6) Nausea & vomiting Code(s): R11.2 - NAUSEA WITH VOMITING, UNSPECIFIED Status: Resolved (7) Sepsis with acute organ dysfunction Code(s): A41.9 - SEPSIS, UNSPECIFIED ORGANISM; R65.20 - SEVERE SEPSIS WITHOUT SEPTIC SHOCK Status: Acute (8) Thrombocytopenia Code(s): D69.6 - THROMBOCYTOPENIA, UNSPECIFIED Status: Acute (9) DM type 2 (diabetes mellitus, type 2) Status: Chronic (10) Dyslipidemia Code(s): E78.5 - HYPERLIPIDEMIA, UNSPECIFIED Status: Chronic (11) HTN (hypertension) Code(s): I10 - ESSENTIAL (PRIMARY) HYPERTENSION Status: Chronic (12) Hemiparesis due to old cerebrovascular accident Code(s): I69.359 - HEMIPLGA FOLLOWING CEREBRAL INFARCTION AFFECTING UNSP SIDE Status: Chronic (13) Encephalopathy acute Code(s): G93.40 - ENCEPHALOPATHY, UNSPECIFIED Status: Resolved (14) Urinary retention Code(s): R33.9 - RETENTION OF URINE, UNSPECIFIED Status: Acute (15) Hip fracture Code(s): S72.009A - FRACTURE OF UNSP PART OF NECK OF UNSP FEMUR, INIT Status: Acute Qualifiers: Laterality: right Comment: s/p surgical repair (16) Acute respiratory failure with hypoxia Code(s): J96.01 - ACUTE RESPIRATORY FAILURE WITH HYPOXIA Status: Acute (17) Left lower lobe pneumonia Code(s): J18.1 - LOBAR PNEUMONIA, UNSPECIFIED ORGANISM Status: Acute - Plan cont current plan of care, castellon catheter, continue antibiotics, PT/OT, hospital social worker, respiratory therapy, incentive spirometry * will give one dose of lasix * change rocephin to keflex * change po levaquin * consider castellon removal tomorrow * pt would be ready for discharge tomorrow. * medication reviewed as below * symptomatic treatment * pain control * reduce dose of levemir and glyburide Review of Systems - Review of Systems Constitutional: Weakness. negative: Fever, Chills, Sweats, Malaise, Other ENT: negative: Ear Pain, Ear Discharge, Nose Pain, Nose Discharge, Nose Congestion, Mouth Pain, Mouth Swelling, Throat Pain, Throat Swelling, Other Respiratory: negative: Cough, Dry, Shortness of Breath, Hemoptysis, SOB with Excertion, Pleuritic Pain, Sputum, Wheezing Cardiovascular: negative: Chest Pain, Palpitations, Orthopnea, Paroxysmal Noc. Dyspnea, Edema, Light Headedness, Other Gastrointestinal: negative: Nausea, Vomiting, Abdominal Pain, Diarrhea, Constipation, Melena, Hematochezia, Other Genitourinary: negative: Dysuria, Frequency, Incontinence, Hematuria, Retention , Other Musculoskeletal: negative: Neck Pain, Shoulder Pain, Arm Pain, Back Pain, Hand Pain, Leg Pain, Foot Pain, Other Skin: negative: Rash, Lesions, Jean Paul, Bruising, Other - Medications/Allergies Allergies/Adverse Reactions: Allergies Allergy/AdvReac Type Severity Reaction Status Date / Time Penicillins Allergy Hives Verified 06/23/14 11:19 Medications: Current Medications Acetaminophen (Tylenol) 650 mg PO Q4H PRN PRN Reason: Headache/Fever or Pain Last Admin: 06/06/17 20:34 Dose: 650 mg Acetaminophen/Codeine Phosphate (Tylenol #3) 1 tab PO Q4H PRN PRN Reason: Moderate Pain (4-6) Acetaminophen/Codeine Phosphate (Tylenol #3) 2 tab PO Q4H PRN PRN Reason: Severe Pain (7-10) Last Admin: 06/08/17 21:08 Dose: 2 tab Al Hydroxide/Mg Hydroxide (Maalox) 15 ml PO Q4H PRN PRN Reason: Heartburn or Indigestion Albuterol/Ipratropium (Duoneb) 3 ml NEB [id number] [facility] Last Admin: 06/09/17 06:52 Dose: Not Given Artificial Tears (Tears Naturale) 0 drop EA EYE PRN PRN PRN Reason: Dry Eyes Atorvastatin Calcium (Lipitor) 10 mg PO HS [facility] Last Admin: 06/08/17 21:08 Dose: 10 mg Dextrose/Water (Dextrose 50%) 25 gm SLOW IVP PRN PRN PRN Reason: Hypoglycemia Fentanyl (Sublimaze) 25 mcg SLOW IVP Q2H PRN PRN Reason: Moderate Pain (4-6) Last Admin: 06/07/17 12:15 Dose: 25 mcg Glucagon (Glucagon) 1 mg IM PRN PRN PRN Reason: Hypoglycemia Glyburide (Micronase) 2.5 mg PO BID [facility] Guaifenesin (Robitussin Sf) 200 mg PO Q4H PRN PRN Reason: Cough Heparin Sodium (Porcine) (Heparin) 5,000 units SC BID [facility] Last Admin: 06/09/17 08:26 Dose: 5,000 units Hydralazine HCl (Apresoline) 10 mg SLOW IVP Q4H PRN PRN Reason: Systolic BP > 180 Last Admin: 06/06/17 16:17 Dose: 10 mg Hyoscyamine Sulfate (Levsin Sl) 0.125 mg SL Q4H PRN PRN Reason: GI Cramping Dextrose/Water (D5w) 1,000 mls @ 0 mls/hr IV .Q0M PRN; As Directed PRN Reason: Hypoglycemia Ceftriaxone Sodium 1 gm/ (Syringe 0.4 ml/ Sterile Water) 10 mls @ 120 mls/hr SLOW IVP 2200 [facility] Last Admin: 06/08/17 21:10 Dose: 10 mls Levofloxacin 500 mg/ Device 100 mls @ 100 mls/hr IVPB Q24HR [facility] Last Admin: 06/09/17 08:25 Dose: 100 mls Insulin Detemir 10 units/ (Miscellaneous Medication) 0.1 mls @ 0 mls/hr SC [facility] Insulin Human Lispro (Humalog) 0 units SC .MODERATE SLIDING SC PRN PRN Reason: Moderate Correctional Scale Last Admin: 06/04/17 06:15 Dose: 4 unit Insulin Human Lispro (Humalog) 0 units SC .BEDTIME SLIDING SC PRN PRN Reason: Bedtime Correctional Scale Last Admin: 06/03/17 21:37 Dose: 4 unit Loperamide HCl (Imodium) 2 mg PO PRN PRN PRN Reason: Diarrhea/Loose Stools Loratadine (Claritin) 10 mg PO DAILYPRN PRN PRN Reason: Sinus Symptoms Losartan Potassium (Cozaar) 50 mg PO DAILY [facility] Last Admin: 06/09/17 08:26 Dose: 50 mg Magnesium Hydroxide (Milk Of Magnesium) 30 ml PO DAILYPRN PRN PRN Reason: Constipation Mineral Oil/White Petrolatum (Eucerin Cream) 0 gm TOP BIDPRN PRN PRN Reason: Dry Skin Ondansetron HCl (Zofran) 4 mg IVP Q6H PRN PRN Reason: Nausea/Vomiting Last Admin: 06/03/17 04:46 Dose: 4 mg Ondansetron HCl (Zofran Odt) 4 mg PO Q6H PRN PRN Reason: Nausea/Vomiting Last Admin: 06/09/17 08:28 Dose: 4 mg Pantoprazole Sodium (Protonix) 40 mg PO DAILY [facility] Last Admin: 06/09/17 08:26 Dose: 40 mg Phenol (Chloraseptic [place] 180 Ml Bot) 0 ml PO PRN PRN PRN Reason: Sore Throat Promethazine HCl (Phenergan) 12.5 mg IM/IV Q6H PRN PRN Reason: Nausea/Vomiting Last Admin: 06/03/17 05:20 Dose: 12.5 mg Senna (Senokot) 2 tab PO HSPRN PRN PRN Reason: Constipation Sodium Chloride (Flush - Normal Saline) 10 ml IVF Q12HR [facility] Last Admin: 06/09/17 08:27 Dose: 10 ml Sodium Chloride (Flush - Normal Saline) 10 ml IVF PRN PRN PRN Reason: Saline Flush Last Admin: 06/04/17 03:15 Dose: 10 ml Sodium Chloride ([place] Nasal [place] 0.65%) 0 ml EA NARE QIDPRN PRN PRN Reason: Nasal Congestion Temazepam (Restoril) 15 mg PO HSPRN PRN PRN Reason: Insomnia Tramadol HCl (Ultram) 100 mg PO Q4H PRN PRN Reason: Moderate Pain (4-6) Last Admin: 06/09/17 08:26 Dose: 100 mg
[2017-06-09] MEDS: Cephalexin 250 MG CAP PO SCH ×2 (17:16→20:28)
[2017-06-09] MEDS: Acetaminophen/Codeine 30-300mg Tablet PO PRN (17:16)
[2017-06-09] MEDS: Atorvastatin Calcium 10 MG TAB PO SCH (20:28)
[2017-06-09] MEDS ORDERED: Insulin Detemir 100 UNITS/ML 10 UNITS in Pre-Filled Syringe 1 EACH SC SCH (21:00)
[2017-06-10] MEDS: Losartan Potassium 25 MG TAB PO SCH (08:36)
[2017-06-10] MEDS: Cephalexin 250 MG CAP PO SCH ×2 (08:37→14:31)
[2017-06-10] MEDS: Heparin 5,000 UNITS/ML VIAL SC SCH (08:39)
[2017-06-10] MEDS: Acetaminophen/Codeine 30-300mg Tablet PO PRN (08:41)
[2017-06-10] MEDS ORDERED: glyBURIDE 2.5 MG TAB PO SCH (09:00)
[2017-06-10 12:29] VITALS: BP 163/66; TEMP 97.9
[2017-06-10] MEDS ORDERED: Fleet Enema 133 ML BOT PR SCH (14:00)
--- NOTE | 2017-06-10 15:31 | DIS ---
DATE OF ADMISSION: 06/01/2017 DATE OF DISCHARGE: 06/10/2017 PRIMARY CARE PHYSICIAN: [facility] call admission. DISCHARGE DISPOSITION: Rehabilitation. PRIMARY DISCHARGE DIAGNOSES: 1. Acute metabolic and septic encephalopathy, improved. 2. Bacteremia due to Streptococcus, resolved. 3. Acute kidney failure, improved. 4. Sepsis with active organ dysfunction, resolved. 5. Nausea and vomiting, corrected. 6. Acute hypoxic respiratory failure. 7. Left lower lobe pneumonia. 8. Metabolic acidosis. 9. Hyponatremia. 10. Urinary retention. 11. Constipation. 12. Mechanical fall and subsequent hip fracture status post surgical repair. SECONDARY DISCHARGE DIAGNOSES: Diabetes type 2, dyslipidemia, history of cerebrovascular accident wi th hemiparesis, hypertension, physical deconditioning, and mild protein calorie malnutrition. PRIMARY PROCEDURE/OPERATION: Dr. Johnston did cannulated screw fixation of right femoral neck fractu re. RADIOLOGICAL INVESTIGATION: CT brain on admission showed no significant encephalomalacia of left fro ntal, parietal and left superior cerebellum, microvascular ischemic changes. Chest x-ray initially s howed no acute cardiopulmonary process. Pelvis x-ray initially did not show any fracture or dislocat ion. Renal ultrasound was normal. Repeat chest x-ray showed pneumonia on the left lower lobe. Hip x-ray showed subcapital right femoral neck fracture. Ultrasound was negative for any DVT. SIGNIFICANT LABORATORY DATA: WBC 7.3, hemoglobin 10.0, platelets 175. Sodium 130, potassium 3.6, ch loride 107, carbon dioxide 20, BUN 20, creatinine 1.07, calcium 7.6. LFT normal. BNP 334.9. Urinal ysis: Leukocyte esterase small, group A streptococcal screen negative. Blood culture negative. Res piratory virus panel showed adenovirus positive. DISCHARGE MEDICATIONS: Tylenol #3 one tablet q.4 hourly p.r.n., Lipitor 10 mg p.o. daily, Keflex 500 mg p.o. t.i.d. for 7 more days, glyburide 2.5 mg p.o. b.i.d., Humalog insulin as per sliding scale, Levsin 0.125 mg sublingual q.4 hourly p.r.n., Levaquin 500 mg p.o. daily for 7 days, losartan potassi um 50 mg p.o. daily, metformin 500 mg p.o. b.i.d., Protonix 40 mg p.o. daily, MiraLax 17 grams p.o. d aily, and Flomax 0.4 mg p.o. daily. CONTRAINDICATIONS: None. CODE STATUS: FULL CODE. INPATIENT CONSULTANTS: Dr. Phillips was consulted for bacteremia and Dr. Johnston was consulted for hip pain. TEST RESULTS PENDING ON DISCHARGE: None. ALLERGIES: PENICILLIN. DISCHARGE PLAN: Post hospital, patient is discharged to rehab. Subsequently, patient will follow [facility] Dr. Johnston as instructed. The patient will follow with Dr. Phillips and primary care physician. HOSPITAL COURSE: A 67-year-old male with above-mentioned medical problem who was admitted by Dr. Jim calix on 06/01/2017. Please see his H&P for further details. Patient was admitted for positive bloo d culture with Streptococcus. On admission, patient was found with acute kidney failure. His creatinine on admission was 2.29. We gave him IV fluid and his creatinine improved to 1.07. He was meeting sepsis with acute organ dysfunction criteria. He had encephalopathy and that is why C T brain was done which was negative for any acute intracranial process. He did not have any focal ne urological deficit. On admission, patient was complaining of right hip pain. Initially pelvis x-ray did not show any fra cture or dislocation. Patient was continuously having severe unbearable pain and that is why we trie d to do CT lower extremity, but patient was not tolerating because he was not lying flat and that is why he was given morphine and after morphine patient's condition gotten worse and he became more drow sy and that is why morphine medication was discontinued. We consulted orthopedic physician. We did hip x-ray and hip x-ray did show again right femoral neck fracture and that is why they did surgical fixation. Regarding acute kidney failure, we hydrated with IV fluid. We did renal ultrasound which was normal. By the time of discharge, his renal function completely improved to normal. Regarding Streptococcal bacteremia, we did grow streptococcal screen that was negative. There was no source of infection of Streptococcal bacteremia. We consulted Dr. Phillips and Dr. Phillips recommended t o continue Rocephin therapy for 2 weeks. On discharge, we changed to Keflex. He had repeat blood cu lture which was negative and echocardiography was normal without any vegetation. While in hospital, he had abnormal electrolytes, which was corrected with IV fluid. Patient also developed urinary retention and that is why required in and out catheter, he was also co nstipated and that is why we gave him Fleet enema and we started him Flomax therapy. At rehabilitati on, patient has recurrent retention and then he will need Reid catheter and Urology followup after d ischarge from rehabilitation. Patient also developed pneumonia. He was hypoxic while in hospital and that is why we did chest x-ra y which showing left lower lobe infiltration. We started Levaquin therapy. This patient will need o xygen therapy and assessment for oxygen at rehabilitation. This patient has still significant physical deconditioning and that is why he needs PT, OT and with tonya doty of case management social worker, we arranged rehab placement. Paperwork for discharge done. The patient is seen and examined at bedside today. Review of systems reviewed with him and negative. PHYSICAL EXAMINATION: VITAL SIGNS: Currently, temperature 97.9, pulse 82, respiratory rate 20, saturation 94% on 3-4 liter s of oxygen, blood pressure 163/66, weight 91 pounds. GENERAL: The patient is currently alert, awake, chronically ill, no obvious acute distress. HEAD: Normocephalic, atraumatic. LUNGS: Clear other than air entry reduced basally. CARDIAC: S1 and S2 regular without any murmur. ABDOMEN: Soft and benign without any tenderness. EXTREMITIES: No edema. NEUROLOGIC: Neurologically, nonfocal examination. At rehabilitation, patient will need evaluation for need of Reid catheter. This patient will need t apering of oxygen requirement and if needed oxygen therapy upon discharge, he will need PT, OT, pain control and we need to be very careful with strong narcotics with him. He needs stool softener to pr event constipation. Total time spent on discharge day more than 30 minutes.
[2017-06-11] MEDS ORDERED: Tamsulosin HCl 0.4 MG CAP PO SCH (09:00)
== END 2017-06-10 15:00 | DRG 853 ==
LOC: ERS 21:11 → 2SW 22:36 → 2NO 06-04 19:28 → SURG A 06-06 15:29
PROVIDERS: ADMIT Internal Medicine; ATTEND Internal Medicine
PROC: 0QH604Z Insertion of Internal Fixation Device into Right Upper Femur, Open Approach (ICD-10-PCS; principal; 2017-06-04)
PROC: 3E0T3BZ Introduction of Anesthetic Agent into Peripheral Nerves and Plexi, Percutaneous Approach (ICD-10-PCS; 2017-06-04)
DX: A40.1 Sepsis due to streptococcus, group B (principal); J96.01 Acute respiratory failure with hypoxia; R65.20 Severe sepsis without septic shock; N17.9 Acute kidney failure, unspecified; G93.41 Metabolic encephalopathy; J18.9 Pneumonia, unspecified organism; S72.011A Unspecified intracapsular fracture of right femur, initial encounter for closed fracture; D69.6 Thrombocytopenia, unspecified; E87.2 Acidosis; E87.1 Hypo-osmolality and hyponatremia; I69.959 Hemiplegia and hemiparesis following unspecified cerebrovascular disease affecting unspecified side; E44.1 Mild protein-calorie malnutrition; Z68.1 Body mass index [BMI] 19.9 or less, adult; E87.8 Other disorders of electrolyte and fluid balance, not elsewhere classified; I10 Essential (primary) hypertension; E86.1 Hypovolemia; Z88.0 Allergy status to penicillin; W18.30XA Fall on same level, unspecified, initial encounter; E86.0 Dehydration; R33.9 Retention of urine, unspecified; K59.00 Constipation, unspecified; B35.1 Tinea unguium; E11.65 Type 2 diabetes mellitus with hyperglycemia; W07.XXXA Fall from chair, initial encounter; Y92.230 Patient room in hospital as the place of occurrence of the external cause; T40.2X5A Adverse effect of other opioids, initial encounter; I44.0 Atrioventricular block, first degree
CPT/HCPCS: 36415; 36416; 70450; 71010; 72170; 76001; 76770; 80048; 80053; 81001; 83605; 83690; 83735; 83880; 85025; 87040; 87081; 87430; 87633; 93005; 93306; 93970; 94640; 94760; 96365; 96366; 96368; 96375; A4216; C1713; C1769; G8978-GP-CK; G8978-GP-CL; G8979-GP-CI; G8979-GP-CJ; G8987-GO-CK; G8988-GO-CJ; J0360; J0696; J1580; J1644; J1650; J1815; J1940; J1956; J2020; J2270; J2274; J2405; J2550; J2704; J3010; J3475; J3490; J7620; Q0162; S0028

== ENCOUNTER 2017-09-02 02:05 | Emergency (ER) | payer MEDICARE, OTHER ==
--- NOTE | 2017-09-02 08:53 | RAD ---
RADIOGRAPH RIGHT HIP 2 VIEWS: DATE: 09/02/17. TIME: 3:04 a.m. HISTORY: A 67-year-old male status post fall resulting in traumatic right hip pain. COMPARISON: 06/04/17. FINDINGS: Again noted are the 3 partially threaded screws fixating the nonacute subcapital fracture. No new fr acture is identified. The fracture lucency is not visible. There are moderate hypertrophic degenera tive changes of the acetabulum. Femoral head contour is maintained. No severe hip joint space narro wing. IMPRESSION: 1. Screws fixating nonacute subcapital femoral neck fracture. 2. No evidence of acute fracture or dislocation. 3. Mild to moderate osteoarthrosis of the right hip. POS: OFF
== END 2017-09-02 04:03 | disposition home or self-care (01) ==
LOC: ERS 02:05
DX: S70.01XA Contusion of right hip, initial encounter (principal); E11.9 Type 2 diabetes mellitus without complications; I10 Essential (primary) hypertension; Z86.73 Personal history of transient ischemic attack (TIA), and cerebral infarction without residual deficits; Z79.82 Long term (current) use of aspirin; Z79.4 Long term (current) use of insulin; Z79.899 Other long term (current) drug therapy; W01.0XXA Fall on same level from slipping, tripping and stumbling without subsequent striking against object, initial encounter

== ENCOUNTER 2017-09-24 10:04 | Emergency (ER) | payer MEDICARE, OTHER ==
[2017-09-24 12:46] LABS: CKMB 3.6 ng/mL (0-6.6); Troponin I 0.101 ng/mL (< 0.028)
--- NOTE | 2017-09-24 14:09 | ULT ---
LEFT LOWER EXTREMITY VENOUS DOPPLER: HISTORY: Knee pain. COMPARISON: None. TECHNIQUE: Real-time mora-scale and color Doppler with spectral analysis of the left lower extremity venous syst em was performed with the linear array transducer. The common femoral, femoral, proximal portion of the greater saphenous, and deep femoral veins, as well as the popliteal and posterior tibial veins, w ere interrogated. FINDINGS: There is mild lower extremity edema. Normal flow, augmentation, and compression. IMPRESSION: No deep venous thrombosis. POS: [facility]
--- NOTE | 2017-09-24 14:23 | NM ---
VQ SCAN: HISTORY: Chest pain. TECHNIQUE: A ventilation perfusion scan was performed using 9 mCi Xenon by inhalation for the ventilation study followed by the intravenous administration of 6 mCi Technetium 99m-MAA for the perfusion scan. FINDINGS: Correlation is made with the portable radiograph of same date. Fairly homogeneous tracer distribution is seen in the lungs on both ventilation perfusion scans. Car diomegaly is noted. No mismatched pleural-based segmental/subsegmental perfusion defects are seen. IMPRESSION: Very low probability for pulmonary embolism. POS: [facility]
== END 2017-09-24 15:32 | disposition home or self-care (01) ==
LOC: ERS 10:04
DX: I11.0 Hypertensive heart disease with heart failure (principal); I50.9 Heart failure, unspecified; E11.9 Type 2 diabetes mellitus without complications; K56.609 Unspecified intestinal obstruction, unspecified as to partial versus complete obstruction; Z86.73 Personal history of transient ischemic attack (TIA), and cerebral infarction without residual deficits; Z79.899 Other long term (current) drug therapy; Z79.82 Long term (current) use of aspirin
CPT/HCPCS: 78582; 82553; 83880; 84484; 93005; 93971; A9540; A9558; 36415

== ENCOUNTER 2017-10-23 16:54 | Inpatient (IN) | payer MEDICARE, OTHER ==
[2017-10-23 17:48] LABS: #Eosinphils 0.3 thou/uL (0.0-0.7); #Lymphocytes 1.1 thou/uL (1.20-3.40); #Monocytes 0.4 thou/uL (0.11-0.59); #Neutrophils 5.4 thou/uL (1.40-6.50); %Basophils 0.7 % (0.0-1.0); %Eosinophils 4.1 % (0.0-10.0); %Lymphocytes 14.8 % (21.0-51.0); %Monocytes 5.8 % (0.0-10.0); %Neutrophils 74.7 % (42.0-75.0); Hemoglobin 12.5 g/dL (14.0-18.0); Mean Corpuscular HGB CONC 32.2 g/dL (32.0-36.0); Mean Corpuscular Hemoglobin 30.3 pg (27.0-31.0); Mean Corpuscular Volume 93.9 fl (80.0-94.0); Mean Platelet Volume 8.6 fL (7.4-10.4); Platelet Count 146 thou/uL (130-400); RBC Distribution Width 12.9 % (11.5-14.5); Red Blood Cell (RBC) Count 4.12 mill/uL (4.70-6.10); White Blood Cell (WBC) Count 7.2 thou/uL (4.8-10.8)
[2017-10-23 18:07] LABS: ALT (SGPT) 11 U/L (8-55); AST (SGOT) 19 U/L (5-34); Albumin 3.9 g/dL (3.4-4.8); Alkaline Phosphatase 92 U/L (40-150); Anion Gap 16 mmol/L (10-20); BUN (Urea Nitrogen) 37 mg/dL (8.4-25.7); Bilirubin, Total 0.6 mg/dL (0.2-1.2); Calc. Creatinine Clearance 0 mL/min (70-130); Calcium 9.5 mg/dL (7.8-10.44); Carbon Dioxide 22 mmol/L (23-31); Chloride 105 mmol/L (98-107); Estimated GFR-MDRD 34; Globulin 3.2 g/dL (2.4-3.5); Glucose 196 mg/dL (80-115); Potassium 4.3 mmol/L (3.5-5.1); Protein, Total 7.1 g/dL (5.8-8.1); Sodium 139 mmol/L (136-145)
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
[2017-10-23 18:42] LABS: INR-International Normal Ratio 1.3; PTT 30.2 SEC (22.9-36.1); Prothrombin Time 15.9 SEC (12.0-14.7)
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
[2017-10-23] MEDS ORDERED: Ondansetron HCl/PF 4 MG/2 ML Vial ONE (21:30)
[2017-10-23] MEDS ORDERED: Dextrose 5% in Water 1,000 ML IV PRN (23:42)
[2017-10-23] MEDS ORDERED: Ondansetron HCl/PF 4 MG/2 ML Vial IVP PRN (23:42)
[2017-10-23] MEDS ORDERED: traMADol HCl 50 MG TAB PO PRN (23:42)
[2017-10-23] MEDS ORDERED: hydrALAZINE 20 MG/ML VIAL SLOW IVP PRN (23:42)
[2017-10-23] MEDS ORDERED: Insulin Regular 300 UNITS/3 ML VIAL SC PRN (23:42)
[2017-10-23] MEDS ORDERED: Dextrose 50% Abboject 50 ML SYRINGE SLOW IVP PRN (23:42)
[2017-10-23] MEDS ORDERED: Ondansetron ODT 4 MG TAB PO PRN (23:42)
[2017-10-23] MEDS: Sodium Chloride 0.9% 1,000 ML IV SCH (23:45)
[2017-10-23] MEDS: Acetaminophen 1,000 MG in Premix Bag 1 BAG IVPB SCH (23:55)
[2017-10-24] MEDS ORDERED: Famotidine 20 MG TAB PO SCH ×2 (00:15→21:00)
[2017-10-24 00:23] VITALS: BMI 26.9
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
[2017-10-24] MEDS: Acetaminophen 1,000 MG in Premix Bag 1 BAG IVPB SCH ×2 (06:27→12:03)
--- NOTE | 2017-10-24 07:49 | RAD ---
AP VIEW CHEST: HISTORY: Chest tube placement, respiratory distress, chest pain. FINDINGS: AP view chest was obtained on 10/24/17. Comparison is made to a previous exam from 09/24/17. AP view chest demonstrates EKG leads seen over the chest. Cardiomegaly is seen. Bilateral pleural e ffusions seen, slightly larger on the left than on the right. No definite evidence of chest tube see n. Pulmonary vascular congestion is noted. IMPRESSION: 1. Cardiomegaly. 2. Bilateral pleural effusions. 3. No evidence of pneumothorax. POS: [facility]
[2017-10-24] MEDS: Sodium Chloride 0.9% 1,000 ML IV SCH ×2 (08:00→16:07)
--- NOTE | 2017-10-24 09:57 | CT ---
CT OF THE BRAIN WITHOUT CONTRAST: Date: 10/24/17 COMPARISON: 10/23/17. HISTORY: Follow-up subarachnoid hemorrhage. TECHNIQUE: Multiple contiguous axial images were obtained in a CT of the brain without contrast. FINDINGS: There are stable round areas of hemorrhage within the frontal and parietal areas of encephalomalacia. There are scattered areas of subarachnoid hemorrhage. These are most prominent in the right temporal lobe and left frontal lobe. There is a parenchymal contusion which appears to have enlarged in the l eft frontal region and now measures 1.6 cm in size. No downward herniation or significant midline marcia ft are seen. There are scattered hypodensities in subcortical and periventricular white matter, likel y secondary to small vessel ischemic disease. High density is seen in the posterior aspect of both la teral ventricles which may represent a small amount of intraventricular hemorrhage. There is near com plete opacification of the left maxillary sinus. Soft tissue swelling is seen in the left periorbital region. IMPRESSION: 1. Enlarging left frontal parenchymal contusion. 2. Stable subarachnoid hemorrhage. 3. Interval development of a small amount of intraventricular hemorrhage. POS: [facility]
[2017-10-24] MEDS: Losartan 25 MG TAB PO SCH (10:22)
[2017-10-24] MEDS: Furosemide 20 MG TAB PO SCH ×2 (10:22→21:04)
[2017-10-24] MEDS: Finasteride 5 MG TAB PO SCH (10:22)
[2017-10-24] MEDS: Tamsulosin HCl 0.4 MG CAP PO SCH ×2 (10:23→21:04)
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
[2017-10-24] MEDS: HumaLOG 300 UNITS/3 ML VIAL SC PRN (21:05)
[2017-10-25] MEDS: Sodium Chloride 0.9% 1,000 ML IV SCH ×2 (01:35→12:56)
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
[2017-10-25 08:19] LABS: Anion Gap 13 mmol/L (10-20); BUN (Urea Nitrogen) 31 mg/dL (8.4-25.7); Calc. Creatinine Clearance 49 mL/min (70-130); Calcium 9.3 mg/dL (7.8-10.44); Carbon Dioxide 25 mmol/L (23-31); Chloride 107 mmol/L (98-107); Estimated GFR-MDRD 37; Glucose 134 mg/dL (80-115); Phosphorus 3.8 mg/dL (2.3-4.7); Potassium 4.6 mmol/L (3.5-5.1); Sodium 140 mmol/L (136-145)
[2017-10-25] MEDS: Losartan 25 MG TAB PO SCH (08:39)
[2017-10-25] MEDS: Finasteride 5 MG TAB PO SCH (08:40)
[2017-10-25] MEDS: Furosemide 20 MG TAB PO SCH (08:40)
[2017-10-25] MEDS: Tamsulosin HCl 0.4 MG CAP PO SCH (08:40)
[2017-10-25] MEDS ORDERED: Atorvastatin Calcium 10 MG TAB PO SCH (09:00)
[2017-10-25] MEDS ORDERED: Polyethylene Glycol 3350 17 GM Packet PO SCH (09:00)
[2017-10-25] MEDS ORDERED: Senokot S 8.6-50 MG TAB PO SCH (09:00)
[2017-10-25 12:03] VITALS: BP 166/54; TEMP 97.5
[2017-10-25] MEDS: HumaLOG 300 UNITS/3 ML VIAL SC PRN (12:51)
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
== END 2017-10-25 14:44 | disposition home or self-care (01) | DRG 157 ==
LOC: ERS 16:54 → CCU 20:34 → SJJU 10-24 15:51
PROVIDERS: ADMIT Specialist; ATTEND Specialist
DX: S02.40DA Maxillary fracture, left side, initial encounter for closed fracture (principal); S06.6X1A Traumatic subarachnoid hemorrhage with loss of consciousness of 30 minutes or less, initial encounter; S02.32XA Fracture of orbital floor, left side, initial encounter for closed fracture; S02.82XA Fracture of other specified skull and facial bones, left side, initial encounter for closed fracture; E11.9 Type 2 diabetes mellitus without complications; I10 Essential (primary) hypertension; Z86.73 Personal history of transient ischemic attack (TIA), and cerebral infarction without residual deficits; Y09 Assault by unspecified means; E78.5 Hyperlipidemia, unspecified; R40.2414 Glasgow coma scale score 13-15, 24 hours or more after hospital admission
CPT/HCPCS: 36415; 36416; 70450; 70486; 71045; 72125; 80048; 80053; 83735; 84100; 85025; 85610; 85730; 86850; 86900; 86901; G0390; G8978-GP-CJ; G8979-GP-CI; G8987-GO-CJ; G8988-GO-CH; G9165-GN-CK; G9166-GN-CI; J0131; J2405

== ENCOUNTER 2017-11-01 21:18 | Inpatient (IN) | payer MEDICARE, OTHER ==
[2017-11-01] MEDS ORDERED: Ketorolac Tromethamine 30 MG/ML VIAL ONE (22:19)
[2017-11-01 23:41] LABS: #Lymphocytes 1.3 thou/uL (1.20-3.40); %Basophils 0.4 % (0.0-1.0); %Eosinophils 0.4 % (0.0-10.0); %Lymphocytes 13.3 % (21.0-51.0); %Monocytes 10.7 % (0.0-10.0); %Neutrophils 75.2 % (42.0-75.0); Hemoglobin 11.3 g/dL (14.0-18.0); Mean Corpuscular HGB CONC 33.4 g/dL (32.0-36.0); Mean Corpuscular Hemoglobin 29.9 pg (27.0-31.0); Mean Corpuscular Volume 89.5 fl (80.0-94.0); Mean Platelet Volume 7.9 fL (7.4-10.4); Platelet Count 156 thou/uL (130-400); RBC Distribution Width 13.2 % (11.5-14.5); Red Blood Cell (RBC) Count 3.77 mill/uL (4.70-6.10); White Blood Cell (WBC) Count 9.4 thou/uL (4.8-10.8)
[2017-11-02 00:01] LABS: ALT (SGPT) 8 U/L (8-55); AST (SGOT) 14 U/L (5-34); Albumin 3.5 g/dL (3.4-4.8); Alkaline Phosphatase 68 U/L (40-150); Anion Gap 13 mmol/L (10-20); BUN (Urea Nitrogen) 30 mg/dL (8.4-25.7); Bilirubin, Total 0.7 mg/dL (0.2-1.2); Calc. Creatinine Clearance 0 mL/min (70-130); Carbon Dioxide 27 mmol/L (23-31); Chloride 95 mmol/L (98-107); Estimated GFR-MDRD 36; Globulin 2.5 g/dL (2.4-3.5); Glucose 162 mg/dL (80-115); Potassium 4.6 mmol/L (3.5-5.1); Sodium 130 mmol/L (136-145)
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
[2017-11-02] MEDS ORDERED: HYDROcodone/Acetaminophen 5/325 mg Tablet PO PRN (01:37)
[2017-11-02] MEDS ORDERED: Morphine 4 MG/ML VIAL SLOW IVP PRN (01:37)
[2017-11-02] MEDS ORDERED: hydrALAZINE 20 MG/ML VIAL SLOW IVP PRN (01:37)
[2017-11-02] MEDS ORDERED: Dextrose 50% Abboject 50 ML SYRINGE SLOW IVP PRN ×2 (01:37)
[2017-11-02] MEDS ORDERED: Dextrose 5% in Water 1,000 ML IV PRN (01:37)
[2017-11-02] MEDS ORDERED: Polyethylene Glycol 3350 17 GM Packet PO PRN (01:37)
[2017-11-02] MEDS ORDERED: Bisacodyl 10 MG SUPP PR PRN (01:37)
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
[2017-11-02 01:51] VITALS: BMI 29.2
[2017-11-02 05:18] LABS: Anion Gap 9 mmol/L (10-20); BUN (Urea Nitrogen) 31 mg/dL (8.4-25.7); Calc. Creatinine Clearance 46 mL/min (70-130); Calcium 9.2 mg/dL (7.8-10.44); Carbon Dioxide 30 mmol/L (23-31); Chloride 97 mmol/L (98-107); Estimated GFR-MDRD 34; Glucose 141 mg/dL (80-115); Magnesium 2.1 mg/dL (1.6-2.6); Phosphorus 4.7 mg/dL (2.3-4.7); Potassium 4.6 mmol/L (3.5-5.1); Sodium 131 mmol/L (136-145)
[2017-11-02] MEDS ORDERED: Sodium Chloride 0.9% 1,000 ML IV SCH (08:00)
[2017-11-02] MEDS ORDERED: Famotidine 20 MG TAB PO SCH (09:00)
[2017-11-02] MEDS: Famotidine 20 MG TAB PO SCH (09:32)
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
[2017-11-02] MEDS: HYDROcodone/Acetaminophen 5/325 mg Tablet PO PRN ×2 (12:40→20:56)
[2017-11-02] MEDS: Insulin Regular 300 UNITS/3 ML VIAL SC PRN (16:44)
[2017-11-02] MEDS: Senokot S 8.6-50 MG TAB PO SCH (20:56)
[2017-11-02] MEDS: Tamsulosin HCl 0.4 MG CAP PO SCH (20:56)
[2017-11-03] MEDS: Losartan 25 MG TAB PO SCH (08:56)
[2017-11-03] MEDS: Senokot S 8.6-50 MG TAB PO SCH ×2 (08:56→20:56)
[2017-11-03] MEDS: Tamsulosin HCl 0.4 MG CAP PO SCH ×2 (08:56→20:56)
[2017-11-03] MEDS: Ascorbic Acid 500 mg Chewable Tablet PO SCH (08:56)
[2017-11-03] MEDS: Famotidine 20 MG TAB PO SCH (08:57)
[2017-11-03] MEDS: Bisacodyl 10 MG SUPP PR SCH (08:57)
[2017-11-03] MEDS: Vitami E (Dl,Tocopheryl Acet) 400 UNITS CAP PO SCH (08:57)
[2017-11-03] MEDS: Finasteride 5 MG TAB PO SCH (08:57)
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
[2017-11-03] MEDS: Insulin Regular 300 UNITS/3 ML VIAL SC PRN ×3 (12:35→20:56)
[2017-11-03] MEDS ORDERED: Atorvastatin Calcium 10 MG TAB PO SCH (21:00)
[2017-11-04] MEDS: HYDROcodone/Acetaminophen 5/325 mg Tablet PO PRN ×2 (01:24→09:03)
[2017-11-04] MEDS: Insulin Regular 300 UNITS/3 ML VIAL SC PRN ×2 (06:28→14:01)
[2017-11-04] MEDS: Tamsulosin HCl 0.4 MG CAP PO SCH (08:52)
[2017-11-04] MEDS: Senokot S 8.6-50 MG TAB PO SCH (08:52)
[2017-11-04] MEDS: Bisacodyl 10 MG SUPP PR SCH (08:53)
[2017-11-04] MEDS: Famotidine 20 MG TAB PO SCH (08:53)
[2017-11-04] MEDS: Vitami E (Dl,Tocopheryl Acet) 400 UNITS CAP PO SCH (08:53)
[2017-11-04] MEDS: Losartan 25 MG TAB PO SCH (08:53)
[2017-11-04] MEDS: Finasteride 5 MG TAB PO SCH (08:53)
[2017-11-04] MEDS ORDERED: Dutasteride 0.5 MG CAP PO SCH (09:00)
[2017-11-04] MEDS ORDERED: Acetaminophen 500 MG TAB PO SCH ×2 (10:45→18:00)
[2017-11-04] MEDS ORDERED: traMADol HCl 50 MG TAB PO SCH ×2 (10:45→18:00)
[2017-11-04] MEDS: Ascorbic Acid 500 mg Chewable Tablet PO SCH (10:52)
[2017-11-04 11:21] VITALS: TEMP 97.6
[2017-11-04] MEDS ORDERED: Cyclobenzaprine 10 MG TAB PO PRN (13:00)
[2017-11-04] MEDS ORDERED: Rib Fracture Protocol PO SCH (13:00)
[2017-11-04] MEDS ORDERED: Ondansetron ODT 4 MG TAB PO PRN (13:58)
[2017-11-04] MEDS ORDERED: Ibuprofen 600 MG TAB PO SCH (14:00)
[2017-11-04] MEDS ORDERED: Gabapentin 100 MG CAP PO SCH (15:00)
[2017-11-04 15:49] VITALS: BP 163/62
[2017-11-04] MEDS ORDERED: Gabapentin 300 MG CAP PO SCH (21:00)
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
== END 2017-11-04 17:28 | DRG 184 ==
LOC: ERS 21:18 → IMCU/EMU 23:35 → SJJU 11-02 16:58
PROVIDERS: ADMIT Specialist; ATTEND Specialist
DX: S22.42XA Multiple fractures of ribs, left side, initial encounter for closed fracture (principal); J90 Pleural effusion, not elsewhere classified; E11.22 Type 2 diabetes mellitus with diabetic chronic kidney disease; N18.3 Chronic kidney disease, stage 3 (moderate); J98.11 Atelectasis; R09.02 Hypoxemia; R33.9 Retention of urine, unspecified; I12.9 Hypertensive chronic kidney disease with stage 1 through stage 4 chronic kidney disease, or unspecified chronic kidney disease; S29.8XXA Other specified injuries of thorax, initial encounter; R06.89 Other abnormalities of breathing; Z87.820 Personal history of traumatic brain injury
CPT/HCPCS: 36415; 36416; 70450; 71045; 80048; 80053; 83735; 84100; 85025; 93005; 94640; 94760; 96374; G8978-GP-CJ; G8979-GP-CI; G8987-GO-CK; G8988-GO-CJ; J1885; J7620

== ENCOUNTER 2017-11-27 12:35 | Outpatient (CLI) | payer MEDICARE, OTHER ==
--- NOTE | 2017-11-27 14:28 | CT ---
CT HEAD WITHOUT CONTRAST: Technique: Multiple axial tomograms were obtained through the head without IV enhancement. Indications: Follow up subdural hematoma and subarachnoid hemorrhage. Comparison: 11-02-17, 10-24-17 FINDINGS: Areas of encephalomalacia are again noted involving the left frontal lobe, left parietal lobe, and le ft cerebellum. No evidence of subdural or subarachnoid hemorrhage on today's exam. Craniotomy defects are again noted on the left. Sinuses and mastoids are aerated. Chronic ischemic white matter changes are again noted. No evidence of acute process. IMPRESSION: No evidence of hemorrhage. Chronic brain changes along with post op craniotomy changes are again note d. POS: [facility]
== END 2017-11-27 12:36 | disposition home or self-care (01) ==
LOC: TBSIIMAG 12:35
PROVIDERS: ATTEND Surgery
DX: S06.6X0A Traumatic subarachnoid hemorrhage without loss of consciousness, initial encounter (principal); G93.89 Other specified disorders of brain
CPT/HCPCS: 70450

== ENCOUNTER 2017-11-28 09:03 | Outpatient (CLI) | payer MEDICARE, OTHER ==
--- NOTE | 2017-11-28 10:50 | RAD ---
TWO VIEW CHEST: HISTORY: Left rib fracture. COMPARISON: 11/20/17. The left-sided pleural effusion is unchanged in size. The left rib fractures are again noted. Right lung remains clear with evidence of small right effusion, unchanged. Mild cardiomegaly appears stab le. IMPRESSION: No acute interval change noted. POS: [facility]
== END 2017-11-28 09:04 | disposition home or self-care (01) ==
LOC: RAD 09:03
PROVIDERS: ATTEND Physician Assistant
DX: S22.42XD Multiple fractures of ribs, left side, subsequent encounter for fracture with routine healing (principal)
CPT/HCPCS: 71046

== ENCOUNTER 2017-12-16 11:14 | Outpatient (CLI) | payer MEDICARE, OTHER ==
--- NOTE | 2017-12-16 13:12 | RAD ---
PA AND LATERAL CHEST: HISTORY: Dyspnea. COMPARISON: 11/28/17 study. Heart size is enlarged. There is slight reduction of left-sided pleural changes as compared to the p rior examination. Left rib fractures are again identified. The right lung remains clear. IMPRESSION: Slight reduction in the appearance of the left-sided pleural changes. POS: [facility]
== END 2017-12-16 11:15 | disposition home or self-care (01) ==
LOC: RAD 11:14
PROVIDERS: ATTEND Internal Medicine
DX: R06.00 Dyspnea, unspecified (principal); J98.4 Other disorders of lung
CPT/HCPCS: 71046

== ENCOUNTER → 2017-12-16 | Day surgery (SDC) | payer MEDICARE, OTHER ==
[2017-12-16 14:46] LABS: Fluid, Protein 3.5 g/dL (Not Available)
[2017-12-16 15:32] LABS: BF Color Yellow; Body Fluid Source PLEURAL FLUID; Clarity Hazy (Clear); RBC Background Count 0.001; Tube # EDTA; WBC/NonHematic-Auto 233 /cumm
[2017-12-16 15:33] LABS: BF RBC Count - Manual 134 /cumm
[2017-12-16 15:56] LABS: BF Segmented Neutrophils 8 %; Cell Count Non Hematic 43 %; Lymphocytes 45 %
--- NOTE | 2017-12-16 22:38 | OP ---
DATE OF PROCEDURE: 12/16/2017 SERVICE: Pulmonary Medicine. PROCEDURE: Left-sided pleural drainage with catheter insertion under ultrasound guidance. CONSENT: Risks and benefits of this procedure were explained to the patient. All questions were ans wered and alternative options explained. STAFF PHYSICIAN: Terrell Li M.D. MEDICATIONS: Lidocaine 1% without epinephrine, total quantity 8 mL. PREOPERATIVE DIAGNOSIS: Pleural effusion. POSTOPERATIVE DIAGNOSIS: Pleural effusion. DESCRIPTION OF PROCEDURE: A timeout was performed by the procedure team and patient. The patient wa s positively identified using name and date of . The procedure site was marked. Vital sign mon itoring was accomplished by noninvasive hemodynamic monitoring, pulse oximetry, and telemetry. In th e seated position, left posterior hemithorax was examined using ultrasound probe. The diaphragm and pleural fluid was easily identified. The skin was prepped and draped in usual sterile fashion and an esthetized with 1% lidocaine without epinephrine. A finder needle was inserted in the pleural space with return of crystal clear dark yellow fluid. A pleural drainage catheter was inserted in the same location, a total quantity of 1400 mL was withdrawn by syringe pump technique. A sample was sent fo r analysis. Evacuation of the fluid was terminated because we arrived at -20 cm of pleural pressure. The intact catheter was withdrawn on exhalation and a sterile dressing was applied. The patient eugene s stable vitals throughout the entire procedure. ESTIMATED BLOOD LOSS: Less than 1 mL. COMPLICATIONS: None.
[2017-12-19 10:23] LABS: Fungus Stain Final report (.)
== END ==
LOC: ULT 12:16
PROVIDERS: ATTEND Internal Medicine
PROC: 0W983ZZ Drainage of Chest Wall, Percutaneous Approach (ICD-10-PCS; principal; 2017-12-16)
DX: J90 Pleural effusion, not elsewhere classified (principal); E11.9 Type 2 diabetes mellitus without complications; I10 Essential (primary) hypertension; G40.909 Epilepsy, unspecified, not intractable, without status epilepticus; M19.90 Unspecified osteoarthritis, unspecified site; Z79.84 Long term (current) use of oral hypoglycemic drugs; Z79.899 Other long term (current) drug therapy
CPT/HCPCS: 32555; 82150; 82945; 83615; 83986; 84157; 85060; 87070; 87102; 87116; 87205; 87206; 88112; 88305; 89051

== ENCOUNTER 2018-01-16 10:30 | Outpatient (CLI) | payer MEDICARE, OTHER ==
--- NOTE | 2018-01-16 11:45 | RAD ---
TWO VIEWS CHEST: Comparison: 12-16-17 History: Dyspnea. FINDINGS: Two views of the chest shows an enlarged but stable cardiomediastinal silhouette. There is a small le ft pleural effusion, unchanged. Increased interstitial markings are present. Degenerative changes are seen in the spine. IMPRESSION: Stable small left pleural effusion. POS: [facility]
== END 2018-01-16 10:31 | disposition home or self-care (01) ==
LOC: RAD 10:30
PROVIDERS: ATTEND Internal Medicine
DX: R06.00 Dyspnea, unspecified (principal); J90 Pleural effusion, not elsewhere classified
CPT/HCPCS: 71046

== ENCOUNTER 2018-07-10 10:47 | Outpatient (CLI) | payer MEDICARE, OTHER ==
--- NOTE | 2018-07-10 12:34 | RAD ---
FRONTAL VIEW ABDOMEN: KUB: CLINICAL HISTORY: Abdominal pain. FINDINGS: There is interstitial prominence of the lung bases. The bowel gas pattern is nonobstructed with mode rate retained fecal material of the colon. There is a paucity of bowel gas of the abdomen. Metallic clips are seen at the right upper abdomen. The renal shadows are largely obscured by bowel content. Metallic screws are seen overlying the right proximal femur. IMPRESSION: Limited evaluation for detection of renal calculi, as the renal shadows are largely obscured by bowel content. No discrete radiopaque calculi are visualized. Additional details are described above. POS: [facility]
== END 2018-07-10 10:48 | disposition home or self-care (01) ==
LOC: RAD 10:47
PROVIDERS: ATTEND Urology
DX: N20.0 Calculus of kidney (principal); K59.00 Constipation, unspecified
CPT/HCPCS: 74018

== ENCOUNTER 2018-12-17 05:58 | Inpatient (IN) | payer MEDICARE, OTHER ==
[2018-12-17] MEDS ORDERED: Furosemide 40 MG/4 ML VIAL ONE (06:21)
[2018-12-17 06:45] LABS: Hemoglobin 12.1 g/dL (14.0-18.0); Mean Corpuscular HGB CONC 32.7 g/dL (32.0-36.0); Mean Corpuscular Hemoglobin 30.9 pg (27.0-31.0); Mean Corpuscular Volume 94.5 fL (78.0-98.0); RBC Distribution Width 13.4 % (11.5-14.5); Red Blood Cell (RBC) Count 3.93 mill/uL (4.70-6.10); White Blood Cell (WBC) Count 5.2 thou/uL (4.8-10.8)
[2018-12-17 07:06] LABS: ALT (SGPT) 10 U/L (8-55); AST (SGOT) 14 U/L (5-34); Albumin 3.4 g/dL (3.4-4.8); Alkaline Phosphatase 124 U/L (40-150); Anion Gap 12 mmol/L (10-20); BUN (Urea Nitrogen) 46 mg/dL (8.4-25.7); Bilirubin, Total 0.7 mg/dL (0.2-1.2); Calc. Creatinine Clearance 0 mL/min (70-130); Calcium 9.1 mg/dL (7.8-10.44); Carbon Dioxide 21 mmol/L (23-31); Chloride 109 mmol/L (98-107); Estimated GFR-MDRD 29; Globulin 3.1 g/dL (2.4-3.5); Glucose 153 mg/dL (80-115); Potassium 6.3 mmol/L (3.5-5.1); Protein, Total 6.5 g/dL (5.8-8.1); Sodium 136 mmol/L (136-145)
[2018-12-17 07:28] LABS: CKMB 3.7 ng/mL (0-6.6)
[2018-12-17 07:43] LABS: #Eosinphils 0.3 thou/uL (0.0-0.7); #Lymphocytes 1.2 thou/uL (1.20-3.40); #Monocytes 0.5 thou/uL (0.11-0.59); #Neutrophils 3.1 thou/uL (1.40-6.50); %Basophils 0.5 % (0.0-1.0); %Eosinophils 6.6 % (0.0-10.0); %Lymphocytes 23.2 % (21.0-51.0); %Monocytes 10.4 % (0.0-10.0); %Neutrophils 59.2 % (42.0-75.0); Burr Cells SLIGHT = 2-5 cells (100X) (0-1/hpf); MDiff Complete? YES; Platelet Count 117 thou/uL (130-400); Platelet Morphology Comment Appears Decreased; Polychromasia SLIGHT = 2-3 cells (100X) (0-2/hpf); Schistocytes SLIGHT = 2-5 cells (100X) (0-1/hpf)
--- NOTE | 2018-12-17 08:09 | RAD ---
SINGLE VIEW OF THE CHEST: Comparison: 11-20-17 History: Bilateral leg swelling since last week. FINDINGS: Single view of the chest show an enlarged but stable cardiomediastinal silhouette. There is a right s ided pacemaker with its leads in the right atrium and ventricle. Opacity is seen in the left lung bas e which likely represents a pleural effusion and adjacent atelectasis versus infiltrate. IMPRESSION: Left pleural effusion with adjacent atelectasis versus infiltrate. POS: [facility]
--- NOTE | 2018-12-17 08:10 | ULT ---
VENOUS DUPLEX SONOGRAM LEFT LOWER EXTREMITY: History: Left leg pain and edema. FINDINGS: The left common femoral vein and greater saphenous junction were evaluated along with the femoral, de ep femoral, popliteal and posterior tibial veins. There is good color and spectral doppler flow, comp ression, and augmentation. IMPRESSION: No sonographic evidence of DVT within the left lower extremity. POS: [facility]
[2018-12-17 09:56] LABS: Troponin I 0.086 ng/mL (< 0.028)
[2018-12-17] MEDS ORDERED: Senokot S 8.6-50 MG TAB PO PRN (10:32)
[2018-12-17] MEDS ORDERED: Acetaminophen 325 MG TAB PO PRN (10:32)
[2018-12-17] MEDS ORDERED: Ondansetron ODT 4 MG TAB PO PRN (10:32)
[2018-12-17] MEDS ORDERED: Guaifenesin DM 100-10/5 ML UDCUP PO PRN (10:32)
[2018-12-17] MEDS ORDERED: Acetaminophen 650 MG Suppository PR PRN (10:32)
[2018-12-17] MEDS ORDERED: Ondansetron PF 4 MG/2 ML Vial IVP PRN (10:32)
[2018-12-17] MEDS ORDERED: Dextrose 5% in Water 1,000 ML IV PRN (11:23)
[2018-12-17] MEDS ORDERED: HumaLOG 300 UNITS/3 ML VIAL SC PRN (11:23)
[2018-12-17] MEDS ORDERED: Dextrose 50% Abboject 50 ML SYRINGE SLOW IVP PRN (11:23)
[2018-12-17] MEDS ORDERED: Aspirin 325 MG TAB ONE (12:38)
[2018-12-17] MEDS ORDERED: Enoxaparin Sodium 80 MG/0.8 ML SYRINGE ONE (12:39)
[2018-12-17 12:55] LABS: Anion Gap 13 mmol/L (10-20); BUN (Urea Nitrogen) 45 mg/dL (8.4-25.7); Calc. Creatinine Clearance 0 mL/min (70-130); Calcium 9.1 mg/dL (7.8-10.44); Carbon Dioxide 20 mmol/L (23-31); Chloride 109 mmol/L (98-107); Estimated GFR-MDRD 29; Glucose 158 mg/dL (80-115); Potassium 5.7 mmol/L (3.5-5.1); Sodium 136 mmol/L (136-145)
[2018-12-17 13:01] LABS: Troponin I 0.067 ng/mL (< 0.028)
[2018-12-17] MEDS ORDERED: Furosemide 40 MG/4 ML VIAL SLOW IVP SCH (14:00)
[2018-12-17] MEDS ORDERED: Furosemide 100 MG/10 ML VIAL ONE (14:28)
[2018-12-17] MEDS: Heparin 5,000 UNITS/ML VIAL SC SCH ×2 (15:00→20:55)
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
[2018-12-17 16:01] VITALS: BMI 26.5
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
[2018-12-17] MEDS: Furosemide 40 MG/4 ML VIAL SLOW IVP SCH (16:57)
[2018-12-17] MEDS: Gabapentin 100 MG CAP PO SCH ×2 (16:57→20:55)
[2018-12-17 18:17] LABS: Potassium 5.5 mmol/L (3.5-5.1)
[2018-12-17] MEDS: Tamsulosin HCl 0.4 MG CAP PO SCH (20:55)
[2018-12-17] MEDS: Atorvastatin Calcium 10 MG TAB PO SCH (20:55)
[2018-12-17] MEDS: diphenhydrAMINE 50 MG CAP PO SCH (20:55)
[2018-12-17] MEDS ORDERED: diphenhydrAMINE 50 MG CAP PO SCH (21:00)
[2018-12-18] MEDS: Furosemide 40 MG/4 ML VIAL SLOW IVP SCH ×2 (05:39→13:39)
[2018-12-18 06:16] LABS: #Basophils 0.1 thou/uL (0.0-0.2); #Eosinphils 0.4 thou/uL (0.0-0.7); #Lymphocytes 1.1 thou/uL (1.20-3.40); #Monocytes 0.5 thou/uL (0.11-0.59); #Neutrophils 2.6 thou/uL (1.40-6.50); %Basophils 1.1 % (0.0-1.0); %Lymphocytes 23.2 % (21.0-51.0); %Monocytes 10.2 % (0.0-10.0); %Neutrophils 56.6 % (42.0-75.0); Hemoglobin 11.4 g/dL (14.0-18.0); Mean Corpuscular HGB CONC 32.8 g/dL (32.0-36.0); Mean Corpuscular Hemoglobin 30.9 pg (27.0-31.0); Mean Corpuscular Volume 94.2 fL (78.0-98.0); Mean Platelet Volume 8.1 fL (7.4-10.4); Platelet Count 121 thou/uL (130-400); RBC Distribution Width 13.3 % (11.5-14.5); Red Blood Cell (RBC) Count 3.68 mill/uL (4.70-6.10); White Blood Cell (WBC) Count 4.6 thou/uL (4.8-10.8)
[2018-12-18 06:34] LABS: Anion Gap 11 mmol/L (10-20); BUN (Urea Nitrogen) 45 mg/dL (8.4-25.7); Calc. Creatinine Clearance 46 mL/min (70-130); Calcium 8.8 mg/dL (7.8-10.44); Carbon Dioxide 19 mmol/L (23-31); Chloride 110 mmol/L (98-107); Estimated GFR-MDRD 33; Glucose 99 mg/dL (80-115); Potassium 4.9 mmol/L (3.5-5.1); Sodium 135 mmol/L (136-145)
--- NOTE | 2018-12-18 07:28 | PDOC.PN ---
- Subjective Encounter Start Date: 12/18/18 Encounter Start Time: 09:00 Subjective: Patient denies chest pain/SOB/edema. Feeling well. - Objective Resuscitation Status - Order Detail: 12/17/18 07:36 Resuscitation Status Routine Resuscitation Status: FULL: Full Resuscitation Discussed with: Coleman CAIN Reviewed: Yes Vital Signs & Weight: Vital Signs (12 hours) Temp Pulse Resp BP Pulse Ox 12/18/18 03:28 97.8 F 79 16 164/70 H 92 L 12/17/18 23:53 97.7 F 70 18 160/74 H 93 L 12/17/18 20:20 95 12/17/18 19:55 97.6 F 71 16 179/73 H 95 Weight Weight 203 lb 7 oz Result Diagrams: 12/18/18 05:47 12/18/18 05:47 Additional Labs: Accuchecks 12/17/18 12/17/18 20:34 16:59 POC Glucose 144 H 172 H Phys Exam - Physical Examination Constitutional: NAD HEENT: moist MMs Respiratory: no wheezing, no rales, no rhonchi, clear to auscultation bilateral Cardiovascular: RRR, no significant murmur Gastrointestinal: soft, positive bowel sounds trace LE edema bilaterally Neurological: non-focal Psychiatric: normal affect, A&O x 3 Dx/Plan (1) Hyperkalemia Code(s): E87.5 - HYPERKALEMIA Status: Resolved (2) Acute on chronic systolic (congestive) heart failure Code(s): I50.23 - ACUTE ON CHRONIC SYSTOLIC (CONGESTIVE) HEART FAILURE Status : Acute Comment: diuresing with Lasix (3) Chronic renal failure, stage 3 (moderate) Code(s): N18.3 - CHRONIC KIDNEY DISEASE, STAGE 3 (MODERATE) Status: Acute Comment: improved a bit with diuresis (4) DM type 2 (diabetes mellitus, type 2) Status: Chronic Qualifiers: 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 - Discharge Encounter end time: 09:10
[2018-12-18] MEDS: Tamsulosin HCl 0.4 MG CAP PO SCH ×2 (09:15→21:00)
[2018-12-18] MEDS: Ferrous Sulfate 325 MG TAB PO SCH ×2 (09:15→17:23)
[2018-12-18] MEDS: Gabapentin 100 MG CAP PO SCH ×3 (09:15→21:00)
[2018-12-18] MEDS: Finasteride 5 MG TAB PO SCH (09:15)
[2018-12-18] MEDS: Heparin 5,000 UNITS/ML VIAL SC SCH ×3 (09:15→21:01)
[2018-12-18] MEDS: glyBURIDE 2.5 MG TAB PO SCH (09:15)
--- NOTE | 2018-12-18 12:07 | PRG ---
DATE OF SERVICE: 12/18/2018 SUBJECTIVE: A 68-year-old gentleman being seen for acute kidney injury. The patient denies any nausea, vomiting, or chest pain. OBJECTIVE: CONSTITUTIONAL: The patient is awake and alert. VITAL SIGNS: Afebrile, pulse 77, breathing 16, and blood pressure 160/74. GENERAL APPEARANCE AND MENTAL STATUS: Fair. HEAD/NECK: Normocephalic. Atraumatic. EYES: EOMI. No deformity. EARS: Clear. No ulcers. NOSE: Intact. No lesions. MOUTH: Clear. No discharge. THROAT: Clear. No exudate. LUNGS: Clear. No crackles. CARDIAC: S1, S2. No rub. ABDOMEN: Benign. Bowel sounds positive. GENITALIA/RECTUM: Reid absent. BACK/EXTREMITIES: Edema 0+. NEUROLOGICAL: Alert and motor intact. SKIN: LYMPHATICS: LABORATORY DATA: Reviewed. ASSESSMENT AND PLAN: 1. Chronic kidney disease stage 3, stable. 2. Hypertension, stable. 3. Acute kidney injury, stable. 4. Hyperkalemia, resolved. No indication for dialysis. The patient's creatinine is at baseline. The patient can follow up to see me in 1 week after discharge. Job ID: [id number]
[2018-12-18] MEDS: HumaLOG 300 UNITS/3 ML VIAL SC PRN (13:30)
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
[2018-12-18] MEDS ORDERED: Famotidine 20 MG TAB PO SCH (21:00)
[2018-12-18] MEDS: Atorvastatin Calcium 10 MG TAB PO SCH (21:00)
[2018-12-18] MEDS: diphenhydrAMINE 50 MG CAP PO SCH (21:01)
[2018-12-19] MEDS: Furosemide 40 MG/4 ML VIAL SLOW IVP SCH ×2 (06:15→13:09)
[2018-12-19] MEDS: Heparin 5,000 UNITS/ML VIAL SC SCH ×2 (08:28→16:10)
[2018-12-19] MEDS: Gabapentin 100 MG CAP PO SCH ×2 (08:29→16:10)
[2018-12-19] MEDS: Ferrous Sulfate 325 MG TAB PO SCH ×2 (08:29→16:10)
[2018-12-19] MEDS: Finasteride 5 MG TAB PO SCH (08:29)
[2018-12-19] MEDS: Tamsulosin HCl 0.4 MG CAP PO SCH (08:29)
[2018-12-19] MEDS: glyBURIDE 2.5 MG TAB PO SCH (08:30)
[2018-12-19] MEDS: HumaLOG 300 UNITS/3 ML VIAL SC PRN (13:08)
[2018-12-19 16:09] VITALS: BP 166/67; TEMP 97.7
== END 2018-12-19 18:23 | disposition home or self-care (01) | DRG 291 ==
LOC: ERS 05:58 → ERHOLD 08:35 → 2SE 16:11 → 2NO 12-19 10:06
PROVIDERS: ADMIT Emergency Medicine; ATTEND Emergency Medicine
DX: I13.0 Hypertensive heart and chronic kidney disease with heart failure and stage 1 through stage 4 chronic kidney disease, or unspecified chronic kidney disease (principal); I50.23 Acute on chronic systolic (congestive) heart failure; N17.9 Acute kidney failure, unspecified; I44.2 Atrioventricular block, complete; I69.354 Hemiplegia and hemiparesis following cerebral infarction affecting left non-dominant side; N18.3 Chronic kidney disease, stage 3 (moderate); E11.22 Type 2 diabetes mellitus with diabetic chronic kidney disease; E87.5 Hyperkalemia; D63.1 Anemia in chronic kidney disease; E78.00 Pure hypercholesterolemia, unspecified; Z88.0 Allergy status to penicillin; Z95.0 Presence of cardiac pacemaker; Z90.49 Acquired absence of other specified parts of digestive tract; Z79.899 Other long term (current) drug therapy; Z79.84 Long term (current) use of oral hypoglycemic drugs
CPT/HCPCS: 36415; 36416; 71045; 80048; 80053; 82553; 83880; 84484; 85025; 93005; 93306; 93798; 96372; 96374; J1644; J1650; J1940; Q0153